=== PATIENT | male | born 1940 | race Caucasian/White ===

== ENCOUNTER 2022-07-12 09:38 | Inpatient (IN) | payer MEDICARE, SELFPAY ==
[2022-07-12] VITALS (19 sets, daily range): BP systolic 86–129; BP diastolic 51–73; PULSE 64–87; RESP 16–22; TEMP 36.6–37.8; O2SAT 90–99; BMI 36.3
--- NOTE | 2022-07-12 09:46 | PC.NURSE ---
PT ARRIVED TO FLOOR VIA STRETCHER
--- NOTE | 2022-07-12 10:06 | CA_ITS ---
APPROVED REPORT EXAM: Comprehensive 2D, Doppler, and color-flow Echocardiogram Etiologist: Josselin Bauman RVT Ht: 5 ft 10 in Wt: 253lbs BSA: 2.31 BP: 113/76 mmHg Indications: NSTEMI,SP,SOA,OBESITY 2D Dimensions LVOT 2.42 cm (M/F) 1.5-2.5 LA Volume 45.80 mL LA Volume Index 19.83 mL/m2 (M/F) 16-34 M-Mode Dimensions RVDd 4.18 cm (0.9-2.6) LA Diam 4.61 cm (1.9-4.0) LVDd 5.95 cm (3.5-5.7) Ao Diam 3.58 cm (2.0-3.7) LVDs 4.57 cm (3.5-5.7) IVSd 0.54 cm (0.6-1.1) PWd 0.89 cm (0.6-1.1) EF (Teich) 45.70% FS 23.20% EDV (Teich) 176.60 mL TAPSE 1.97 (<1.7) ESV (Teich) 95.90 mL LV Diastology E Decel Time 277.00 (160-240 msec) E/A Ratio 0.7 MED E' 4.00 (< 7 cm/sec) E'/MED E' Ratio 14.25 (>14) LAT E' 7.40 (<10 cm/sec) E/LAT E' Ratio 7.70 (>14) Aortic Valve AI PHT 1516.00 ms AO Peak GR. 11.00 mmHg Mitral Valve MV E Max Castillo. 57.00 (40-130 cm/s) MV A Velocity 87.00 (40-130 cm/s) E/A Ratio 0.66 MV Decel. Time 277.00 (160-240 ms) MV PHT 81.00 ms Pulmonary Valve PV Peak Velocity 58.00 (50-150 cm/s) Tricuspid Valve TR P. Velocity 205.00 cm/s RAP Estimate 10.00 mmHg RVSP 26.90 mmHg Left Ventricle Technically difficult study because of the patient factors and poor acoustic windows. Left atrium is mildly enlarged, left ventricular is normal size mild concentric left ventricular hypertrophy, estimated ejection fraction 45%, there is marked hypokinesis involving the inferior and inferior basal wall. Grade 1 diastolic dysfunction seen without tissue Doppler evidence of trace left atrial pressure. Right Ventricle Right atrium and right ventricular mildly enlarged with normal contractility. Aortic Valve Aortic valve is minimally thickened and fibrosed there is no aortic stenosis, there is trace aortic insufficiency. Mitral Valve Mitral valve leaflets are minimally thickened, there is mild mitral regurgitation. Tricuspid Valve Tricuspid valve grossly normal, there is mild tricuspid regurgitation, tricuspid regurgitation jet plasty is inadequate for calculation of the right ventricular systolic pressure. Pulmonic Valve Pulmonic valve is poorly visualized. Great Vessels Aortic root is normal size. Inferior vena cava is mildly dilated, respiratory variation was not recorded. Pericardium No significant pericardial effusion noted. Conclusion 1. Technically difficult study because of the patient factors and poor acoustic windows. 2. Mild biatrial enlargement, normal left ventricular size, mild concentric left ventricular hypertrophy, estimated ejection fraction 45% with segmental wall motion abnormality described above, Doppler evidence of impaired LV relaxation seen. 3. Thickened and calcified aortic valve without aortic stenosis, there is trace aortic insufficiency. 4. Mildly enlarged right ventricle with normal contractility. 5. Trace mitral and tricuspid regurgitation. 6. No significant pericardial effusion noted. 7. Inferior vena cava is mildly dilated as described above Electronically signed by : Cristopher Chanel MD 07/13/2022 05:58:21
--- NOTE | 2022-07-12 10:08 | EXP.HP ---
History of Present Illness *Admission Date: 07/12/22 *Reason for visit:: Excepted as a transfer from [facility] for chest pain/NSTEMI. *History of present illness: Mr. Santana is a pleasant 82-year-old male who presented to [facility] with 3 days of chest pressure and belching. States that he was having some discomfort into his neck and arm as well. Pain was worse with deep breathing. Did not get relief till starting treatment at the outside hospital. Denies any syncope, vomiting, radiation to his back [facility] concerning for elevated troponin of 2600 on high-sensitivity. Elevated D-dimer as well. Patient was initiated on heparin drip and [facility] was consulted for transfer. EKG obtained at outside hospital with no ST elevations. Patient reports a history of coronary artery disease with an NE in 1999 for which she received stents (cannot tell me the exact number). Procedure performed at [place]. Is also recently been referred to cardiology with Dr. Oneal in [place]. Echo performed 2 weeks ago in their office. On arrival to &, initial labs obtained showing troponin of 1.9. Patient's chest pressure is better. He is stable on room air. Additional work-up including CBC, CMP, echo, EKG still pending at this time. [facility] Disclaimer: The information contained in this section may have been updated after the patient was seen, as this information can be updated by other users. Medical History Benign prostatic hyperplasia CAD in [place] artery Cataract Diabetes mellitus, type 2 Elevated troponin Gallbladder disease History of cataract History of gastroesophageal reflux (GERD) History of heart attack History of left heart catheterization (LHC) Hyperlipidemia Hypertension Non-STEMI (non-ST elevated myocardial infarction) Osteoarthritis Surgical History History of cholecystectomy Family History Family history of cancer Social History Smoking Status: Former smoker quit date: 06/04/99 alcohol intake: never current occupational status: retired Travel in the last 8 weeks: [place] the [place] household members: children housing: house marital status: Review of Systems Review of Systems Review of systems (narrative): 14 point review of systems performed, pertinent positives and negatives as per HPI Meds Home Medications and Allergies Home Medications Medication Instructions Recorded Confirmed Type alfuzosin 10 mg tablet,extended 10 mg PO DAILY bladder problems 07/12/22 07/12/22 History release 24 hr amitriptyline 25 mg tablet 12.5 mg PO DAILY mood 07/12/22 07/12/22 History citalopram 10 mg tablet 10 mg PO DAILY mood 07/12/22 07/12/22 History famotidine 20 mg tablet 20 mg PO BID Acid reflux 07/12/22 07/12/22 History finasteride 5 mg tablet 5 mg PO DAILY bladder problems 07/12/22 07/12/22 History gabapentin 800 mg tablet 800 mg PO Q6HP PRN Pain 07/12/22 07/12/22 History metformin 500 mg tablet 500 mg PO DAILY Diabetes 07/12/22 07/12/22 History pravastatin 80 mg tablet 80 mg PO DAILY Cholesterol 07/12/22 07/12/22 History ramipril 5 mg capsule 5 mg PO DAILY High blood pressure 07/12/22 07/12/22 History spironolactone 50 mg tablet 50 mg PO DAILY Diuretic 07/12/22 07/12/22 History New Prescriptions to Start Prescriptions: Allergies Allergy/AdvReac Type Severity Reaction Status Date / Time No Known Allergies Allergy Verified 07/12/22 11:18 Exam Data for Last 24 hours Vital signs and Labs for Last 24 Hours: Temp Pulse Resp BP Pulse Ox 98.9 F 79 18 124/70 94 L 07/12/22 10:06 07/12/22 10:06 07/12/22 10:06 07/12/22 10:06 07/12/22 10:06 I & O for Last 24 hours: Intake & Output 07/09/22 07/10/22 07/11/22 07/12/22 23:
--- NOTE | 2022-07-12 10:13 | IR_ITS ---
APPROVED REPORT Patient Location: Outpatient Patient Service Representative: MIKIE Multani RT (R) PROCEDURES Left heart catheterization Left ventriculogram Selective coronary angiogram Drug-eluting stent deployment to the proximal mid LAD Drug-eluting stent deployment to the ostial proximal mid and distal dominant right coronary INDICATION Acute non-ST elevation myocardial infarction, Coronary artery disease Informed consent was obtained prior to the procedure. COMPLICATIONS None Estimated Blood Loss: Less than 10 mls TECHNIQUE One percent lidocaine used to anesthetize the right anterior aspect of the wrist. The right radial artery was accessed via the Seldinger technique. A 6 [place] sheath was placed in the right radial artery. 2.5 mg of verapamil, 800 mcg of nitroglycerin, 1mg Lidocaine and 5000 U Heparin were given through the arterial sheath. The papa catheter was also used to perform left heart catheterization, left ventriculogram and selective coronary angiogram. At the end the diagnostic angiogram therapeutic heparin was administered giving a therapeutic ACT and the guide catheter was placed in left main artery followed by a Choice PT extra-support wire down the LAD. A 3.5 x 26 mm resolute Whitefield stent was deployed in the proximal to mid LAD reducing the stenosis which was initially felt to be the culprit for the non-ST elevation myocardial infarction. MAYO-3 flow was present before and after the procedure. At the end of the procedure excellent angiographic results were obtained. Because I did not see many collaterals to the right coronary artery I was more concerned that this could be the culprit. The guide catheter was placed in the right coronary artery and the Choice PT extra-support wire easily traversed the occlusion. A 4 mm x 18 mm resolute Levon stent was deployed at 18 [place] reducing the stenosis. This immediately demonstrated the vessel was widely patent distally even though no flow was occurring. A 4 mm x 38 mm resolute Levon stent was placed distal to the first stent deployed at 18 [place]. This restored MAYO-3 flow. There was a gap between the 18 mm and 38 mm stent therefore an additional 4 mm x 8 mm resolute Whitefield stent was placed between the 2 stents together. This was deployed at 20 [place]. Following this a 4.5 x 12 mm resolute Whitefield stent was placed in the ostial segment. There appeared to be an ostial dissection. This was deployed at 20 [place]. The balloon was advanced to the midportion and deployed at 20 [place] to post dilate. An additional 4.5 x 12 mm resolute Whitefield stent was then placed distal to the ostial stent yet proximal to the first 4 mm x 18 mm stent which was placed. The stent overlapped the first stent which was placed as well as this ostial stent. This was deployed at 20 [place]. The balloon was then advanced to the mid dominant right coronary and deployed at 24 [place] to further post dilate. 800 mcg of intracoronary nitroglycerin was administered. At the end of the procedure MAYO-3 flow was present with excellent antegrade flow into the distal vessel. Initial flow down the right coronary artery was MAYO 0 with MAYO-3 flow at the end of the procedure. In the procedure the apparatus was removed the sheath was removed and hemostasis was achieved using TR banding patient was transferred to the postop putting in stable condition ANGIOGRAPHIC RESULTS The left main artery Normal The left anterior descending artery Has mild proximal 10% stenosis with a mid vessel 50% stenosis. There appears to be poststenotic dilatation suggesting a more hemodynamically significant stenosis nondominant yet still large vessel which has mild 10% proximal mid vessel and distal stenoses The circumflex artery
[2022-07-12 10:23] LABS: Basophils # 0.1 K/mm3 (0-0.2); Basophils % 0.6 % (0.1-2.0); Eosinophils # 0.1 K/mm3 (0.0-0.4); Eosinophils % 1.2 % (0.1-12.0); Hematocrit 42.5 % (42.0-52.0); Hemoglobin 13.6 g/dL (14.1-18.0); Lymphocytes # 2.7 K/mm3 (0.7-4.5); Lymphocytes % 25.4 % (10-50); Mean Corpuscular Hemoglobin 29.7 pg (27.0-31.2); Mean Corpuscular Volume 92.8 fl (80-94); Mean Platelet Volume 7.6 fl (7.4-10.4); Monocytes # 0.6 K/mm3 (0.1-1.0); Monocytes % 5.4 % (1.7-9.3); Neutrophils # 7.1 K/mm3 (1.8-7.8); Neutrophils % 67.3 % (37.0-80.0); Platelet Count 262 K/mm3 (142-424); Red Blood Count 4.59 M/mm3 (4.60-6.20); Red Cell Distribution Width 12.7 % (11.5-17.5); White Blood Count 10.6 K/mm3 (4.8-10.8)
[2022-07-12 10:30] LABS: Alanine Aminotransferase 19 U/L (12-78); Albumin/Globulin Ratio 1.3 (1.1-1.8); Alkaline Phosphatase 64 U/L (38-126); Anion Gap 8.2 mEq/L (5-15); Aspartate Amino Transferase 25 U/L (17-59); Bilirubin,Total 0.8 mg/dl (0.2-1.3); Blood Urea Nitrogen 15 mg/dl (9-20); Calcium 8.3 mg/dl (8.4-10.2); Carbon Dioxide 32 mmol/L (22.0-30.0); Chloride 102 mmol/L (98-107); Chol/HDL Ratio 4.6 (1-3.5); Cholesterol 128 mg/dl (140-200); Creatinine Clearance Estimated 71 mL/min (50-200); Estimated Glomerular Filt Rate 53 ml/min (>60); GFR (African American) 64 ML/MIN (>60); Glucose 123 mg/dl (74-100); HDL Cholesterol 28 mg/dl (40-60); Potassium 4.2 mmoL/L (3.5-5.1); Sodium 138 mmol/L (136-145); Triglycerides 113 mg/dl (30-150); VLDL Cholesterol 23 mg/dL (0-40)
[2022-07-12 10:38] LABS: Activated Partial Thrombo Time 39.5 seconds (22.8-30.6); INR 1.06 (0.9-1.1); Prothrombin Time 11.4 seconds (10.1-12.5)
[2022-07-12 10:41] LABS: Direct LDL Cholesterol 80.53 mg/dL (100-129)
--- NOTE | 2022-07-12 10:56 | P.CONPHA_ITS ---
[facility] Pharmacy Heparin Dosing Demographic Data Admission date:: 07/12/22 Date: 07/12/22 Time: 10:57 Allergies Allergy/AdvReac Type Severity Reaction Status Date / Time No Known Allergies Allergy Verified 07/12/22 11:18 Height: 1.78 m Weight: 114.901 kg Indication Medication therapy:: Heparin Current Indications:: LOW DOSE - NSTEMI Current Active Problems (Updated 07/12/22 @ 13:42 by Ricki Clemons MD) Class 2 obesity (Chronic) Elevated troponin (Acute) Non-STEMI (non-ST elevated myocardial infarction) (Acute) CAD in [place] artery (Acute) Diabetes mellitus, type 2 (Chronic) History of heart attack (Acute) Hyperlipidemia (Chronic) Hypertension (Chronic) CVA?: No Bleeding problem?: No Kidney disease?: No AK?: Yes Desired PTT range:: 50-75 seconds Labs Anticoagulation Lab Results:: 07/12/22 10:15 Hgb 13.6 L Hct 42.5 Plt Count 262 Monitoring Dose Monitor 1: Date: 07/12/22 Time: 10:15 PTT Result:: 39.5 SECONDS (BASELINE) Infusion Rate:: START HEPARIN DRIP AT 1000 UNITS/HOUR = 20 ML/HOUR AND BOLUS 4000 UNITS HEPARIN IV ONCE. Comment:: PATIENT WAS ON HEPARIN DRIP FROM [facility] AND HAD RECEIVED A 4000 UNIT HEPARIN BOLUS THERE. DRIP WAS STOPPED EN ROUTE. BASELINE PTT ABOVE, WILL BOLUS AND START DRIP AT MAXIMUM START (1000 UNITS/HOUR). PLAN FOR PTT IN 6 HOURS. Core Measures Is INR > or = 2 at discharge?: No Most Recent Labs:: Laboratory Results - last 24 hr 07/12/22 10:15: WBC 10.6, RBC 4.59 L, Hgb 13.6 L, Hct 42.5, MCV 92.8, MCH 29.7, MCHC 32.0, RDW 12.7, Plt Count 262, MPV 7.6, Neut % (Auto) 67.3, Lymph % (Auto) 25.4, [place] % (Auto) 5.4, Eos % (Auto) 1.2, Baso % (Auto) 0.6, Neut # (Auto) 7.1, Lymph # (Auto) 2.7, [place] # (Auto) 0.6, Eos # (Auto) 0.1, Baso # (Auto) 0.1 07/12/22 10:15: Sodium 138, Potassium 4.2, Chloride 102, Carbon Dioxide 32 H, Anion Gap 8.2, BUN 15, Creatinine 1.30 H, Estimated Creat Clear 71, Estimated GFR 53 L, Est GFR ( Amer) 64, Glucose 123 H, Calcium 8.3 L, Magnesium 2.0, Total Bilirubin 0.8, AST 25, ALT 19, Alkaline Phosphatase 64, Total Protein 7.0, Albumin 4.0, Globulin 3.0, Albumin/Globulin Ratio 1.3, Triglycerides 113, Cholesterol 128 L, LDL Cholesterol Direct 80.53 L, VLDL Cholesterol 23, HDL Cholesterol 28 L, Cholesterol/HDL Ratio 4.6 H 07/12/22 10:15: PT 11.4, INR 1.06, APTT 39.5 H If INR was < than 2.0 why was therapy stopped?: STARTED ON ASPIRIN AND PLAVIX Were Heparin and Warfarin started on the same day?: No If not, why?: STARTED ON ASPIRIN AND PLAVIX Comments:: STARTED ON ASPIRIN AND PLAVIX
[2022-07-12 10:57] LABS: Troponin I 1.95 ng/ml (0.00-0.034)
--- NOTE | 2022-07-12 10:58 | PC.NURSE ---
Critical Trop of 1.95 reported to Vaishnavi Church APRN and Dr. Clemons. Vaishnavi Church at bedside.
[2022-07-12 11:01] LABS: Thyroid Stimulating Hormone 1.87 uIU/mL (0.465-4.68)
--- NOTE | 2022-07-12 11:27 | HMH.PHAINT1 ---
Pharmacy Intervention Comments: Home medication reconciliation completed using external fill history
[2022-07-12 11:33] LABS: Coronavirus 19, PCR Not Detected (NotDetected); Influenza A, PCR Not Detected (NotDetected); Influenza B, PCR Not Detected (NotDetected)
--- NOTE | 2022-07-12 11:35 | EXP.CARD.CON ---
History of Present Illness History of Present Illness Consult date: 07/12/22 Requesting physician: Ricki Clemons Consult reason: chest pain Chief complaint: chest pain History of present illness: This is an 82-year-old white gentleman who was transferred here from [facility] secondary to a 3-day history of chest pain. The patient presented to their emergency department after having chest pain for 3 days. He states that this is in the substernal aspect of his chest and radiates over to the left side of his chest. He describes this as a pressure, pain sensation. He states it is worse with taking a deep breath. He states that the chest pain was more severe this morning so he went to the emergency department at [facility]. He states that it was an 8 out of 10 in intensity this morning. It is associated with shortness of breath. He denies nausea or diaphoresis. The patient states that sometimes the pain will go up his chest and into his neck as well. He states that he has had symptoms like this prior but has not had the symptoms for a very long time. The patient was found to have an elevated high-sensitivity troponin of 2600. The patient was transferred here. His troponin here is 1.95 consistent with a non-ST elevation myocardial infarction. Of note the patient reports that he had an AL in 1999 where he received stents. He states that he was later stented again in 2000. We did obtain records from [facility] which shows a cardiac catheterization in 2012. It reported that he had patent stent to his right coronary artery. No percutaneous intervention was performed on that cardiac catheterization. The patient states that he was having chest pain previously a few months ago and was sent to Dr. Oneal in [facility]. He states an echocardiogram was performed but he has no results of this. When we call they state that the echo was not performed and it was rescheduled. This morning during my examination he is still having some chest pain intermittently. He states he is short of breath with this chest pain. He denies any fever, chills, nausea, vomiting, diarrhea, PND or orthopnea. He states that he has lower extremity edema intermittently but no edema is noted on exam. [facility] Disclaimer: The information contained in this section may have been updated after the patient was seen, as this information can be updated by other users. Medical History Benign prostatic hyperplasia CAD in [place] artery Cataract Diabetes mellitus, type 2 Elevated troponin Gallbladder disease History of cataract History of gastroesophageal reflux (GERD) History of heart attack History of left heart catheterization (LHC) Hyperlipidemia Hypertension Non-STEMI (non-ST elevated myocardial infarction) Osteoarthritis Surgical History (Updated 07/12/22 @ 11:23 by Louise Bender RN) History of cholecystectomy Family History (Updated 07/12/22 @ 11:23 by Louise Bender RN) Other Family history of cancer Social History (Updated 07/12/22 @ 11:23 by Louise Bender RN) Smoking Status: Former smoker quit date: 06/04/99 alcohol intake: never current occupational status: retired Travel in the last 8 weeks: [place] household members: children housing: house marital status: Review of Systems Review of Systems Review of systems:: pertinent systems reviewed and negative unless documented below Constitutional Constitutional: Reports system reviewed and no additional complaints, except as documented Eyes Eyes: Reports system reviewed and no additional complaints, except as documented ENT Ears, Nose, Mouth, and Throat: Reports system reviewed and no additional complaints, except as documented *Cardiovascular Cardiovascular: Reports system reviewed and no additional complaints, except as documented, Reports chest pain, Reports chest pain at rest,
[2022-07-12 13:15] LABS: CATHL Activated Clotting Time > 400 SEC (74-125)
[2022-07-12 15:47] LABS: Hemoglobin A1C 6.4 % (4.0-6.0)
[2022-07-13] VITALS: PULSE 90
[2022-07-13 04:00] VITALS: BP 132/65; PULSE 80; PULSE 85; RESP 20; TEMP 37.3; O2SAT 90; BMI 37.0
--- NOTE | 2022-07-13 06:15 | ECG_ITS ---
APPROVED REPORT Exam: Resting ECG HR:78 bpm ECG Measurements Heart Rate 78 AXES OR 173 P 67 QRSd 93 QRS 122 QT 369 T -22 QTc 402 Conclusion SINUS RHYTHM INDETERMINATE AXIS LOW QRS VOLTAGE IN EXTREMITY LEADS Old inferior and anterior changes ABNORMAL ECG UNCONFIRMED REPORT Electronically signed by : Galen Dwyer MD 07/13/2022 17:31:03
--- NOTE | 2022-07-13 07:13 | EXP.PN ---
Subjective *Date: 07/13/22 *Time: 07:13 Interval history: Date of service July 13, 2022 Exam Data for Last 24 hours Vital signs and Labs for Last 24 Hours: Temp Pulse Resp BP Pulse Ox 99.2 F 85 20 132/65 90 L 07/13/22 04:00 07/13/22 04:00 07/13/22 04:00 07/13/22 04:00 07/13/22 04:00 Laboratory Results - last 24 hr 07/12/22 10:15: WBC 10.6, RBC 4.59 L, Hgb 13.6 L, Hct 42.5, MCV 92.8, MCH 29.7, MCHC 32.0, RDW 12.7, Plt Count 262, MPV 7.6, Neut % (Auto) 67.3, Lymph % (Auto) 25.4, [place] % (Auto) 5.4, Eos % (Auto) 1.2, Baso % (Auto) 0.6, Neut # (Auto) 7.1, Lymph # (Auto) 2.7, [place] # (Auto) 0.6, Eos # (Auto) 0.1, Baso # (Auto) 0.1 07/12/22 10:15: Sodium 138, Potassium 4.2, Chloride 102, Carbon Dioxide 32 H, Anion Gap 8.2, BUN 15, Creatinine 1.30 H, Estimated Creat Clear 71, Estimated GFR 53 L, Est GFR ( Amer) 64, Glucose 123 H, Calcium 8.3 L, Magnesium 2.0, Total Bilirubin 0.8, AST 25, ALT 19, Alkaline Phosphatase 64, Total Protein 7.0, Albumin 4.0, Globulin 3.0, Albumin/Globulin Ratio 1.3, Triglycerides 113, Cholesterol 128 L, LDL Cholesterol Direct 80.53 L, VLDL Cholesterol 23, HDL Cholesterol 28 L, Cholesterol/HDL Ratio 4.6 H 07/12/22 10:15: Troponin I 1.95 H, TSH 1.87 07/12/22 10:15: PT 11.4, INR 1.06, APTT 39.5 H 07/12/22 10:15: Hemoglobin A1c 6.4 H 07/12/22 10:45: SARS-CoV-2 (PCR) Not detected, Influenza A Untype (PCR) Not detected, Influenza Type B (PCR) Not detected 07/12/22 13:44: Activated Clotting Time > 400 H* I & O for Last 24 hours: Intake & Output 07/10/22 07/11/22 07/12/22 07/13/22 23:59 23:59 23:59 23:59 Intake Total 240 / 240 Output Total 1300 / 1300 Balance -1060 / -1060 Weight 114.901 kg 117.39 kg Constitutional Constitutional: no acute distress *Routine HEENT Exam Head: Present normocephalic Eye: Present EOMI and PERRL ENT: Present mucous membranes moist *Routine Neck Exam Neck: Present supple; Absent lymphadenopathy *Routine Respiratory Exam Respiratory: Present rhonchi, normal respiratory effort and symmetric chest movement *Routine Cardiovascular Exam Cardiovascular: Present RRR *Routine Abdominal Exam Abdominal: Present soft and normoactive bowel sounds; Absent tenderness *Routine Extremities Exam Extremities: Absent cyanosis, clubbing or edema *Routine Skin Exam Skin: Present warm; Absent rash *Routine Neurological Exam Neurological: Present alert, oriented X3, moving all extremities, vision grossly intact, hearing grossly intact and normal speech Routine Psychiatric Exam Psychiatric: Present normal affect, normal thought process, cooperative, good insight and good judgment Assessment and Plan *Assessment and plan (1) Non-STEMI (non-ST elevated myocardial infarction): Status: Acute Category: Medical Code(s): I21.4 - Non-ST elevation (NSTEMI) myocardial infarction (2) CAD in [place] artery: Status: Acute Category: Medical Code(s): I25.10 - Atherosclerotic heart disease of [place] coronary artery without angina pectoris (3) Diabetes mellitus, type 2: Status: Chronic Qualifiers: Diabetes mellitus terminal manager insulin use: with custodial use Diabetes mellitus complication status: without complication Qualified Code(s): E11.9 - Type 2 diabetes mellitus without complications; Z79.4 - senior living (current) use of insulin Category: Medical Code(s): E11.9 - Type 2 diabetes mellitus without complications (4) Hypertension: Status: Chronic Qualifiers: Hypertension type: primary hypertension Qualified Code(s): I10 - Essential (primary) hypertension Category: Medical Code(s): I10 - Essential (primary) hypertension Plan This is an 82-year-old male with history of coronary disease with left heart cath greater than 10 years ago who presented with several days of chest pain to [facility] emergency department and was identified with an NSTEMI with elevated tropo
[2022-07-13 07:19] VITALS: BP 132/66; PULSE 77; RESP 17; TEMP 37.1; O2SAT 94
[2022-07-13 07:35] LABS: Basophils # 0.1 K/mm3 (0-0.2); Basophils % 0.8 % (0.1-2.0); Eosinophils # 0.1 K/mm3 (0.0-0.4); Eosinophils % 0.8 % (0.1-12.0); Hemoglobin 13.1 g/dL (14.1-18.0); Lymphocytes # 2.2 K/mm3 (0.7-4.5); Mean Corpuscular HGB Conc 33.7 g/dL (31.8-35.4); Mean Corpuscular Hemoglobin 31.5 pg (27.0-31.2); Mean Corpuscular Volume 93.5 fl (80-94); Mean Platelet Volume 8.3 fl (7.4-10.4); Monocytes # 0.9 K/mm3 (0.1-1.0); Monocytes % 7.9 % (1.7-9.3); Neutrophils # 8.4 K/mm3 (1.8-7.8); Neutrophils % 71.4 % (37.0-80.0); Platelet Count 219 K/mm3 (142-424); Red Blood Count 4.17 M/mm3 (4.60-6.20); Red Cell Distribution Width 12.8 % (11.5-17.5); White Blood Count 11.7 K/mm3 (4.8-10.8)
[2022-07-13 07:48] LABS: Chloride 104 mmol/L (98-107); Potassium 4.9 mmoL/L (3.5-5.1); Sodium 138 mmol/L (136-145)
[2022-07-13 07:51] LABS: Anion Gap 7.9 mEq/L (5-15); Blood Urea Nitrogen 18 mg/dl (9-20); Carbon Dioxide 31 mmol/L (22.0-30.0); Creatinine Clearance Estimated 73 mL/min (50-200); Estimated Glomerular Filt Rate 53 ml/min (>60); GFR (African American) 64 ML/MIN (>60)
[2022-07-13 07:52] LABS: Calcium 8.1 mg/dl (8.4-10.2); Glucose 127 mg/dl (74-100)
[2022-07-13 10:57] VITALS: BP 99/52; PULSE 72; RESP 18; TEMP 37.2; O2SAT 100
--- NOTE | 2022-07-13 11:32 | EXP.DC.SUM ---
General Admission date:: 07/12/22 Discharge date: 07/13/22 HPI HPI HPI: Mr. Santana is a pleasant 82-year-old male who presented to [facility] with 3 days of chest pressure and belching. States that he was having some discomfort into his neck and arm as well. Pain was worse with deep breathing. Did not get relief till starting treatment at the outside hospital. Denies any syncope, vomiting, radiation to his back [facility] concerning for elevated troponin of 2600 on high-sensitivity. Elevated D-dimer as well. Patient was initiated on heparin drip and [facility] was consulted for transfer. EKG obtained at outside hospital with no ST elevations. Patient reports a history of coronary artery disease with an PA in 1999 for which she received stents (cannot tell me the exact number). Procedure performed at [place]. Is also recently been referred to cardiology with Dr. Oneal in [place]. Echo performed 2 weeks ago in their office. On arrival to [facility], initial labs obtained showing troponin of 1.9. Patient's chest pressure is better. He is stable on room air. Additional work-up including CBC, CMP, echo, EKG still pending at this time. Hospital Course Hospital Course Hospital Course: The patient was admitted to the medical floor with telemetry monitoring. Cardiology was consulted. He underwent a left heart catheterization on 07/12/2022 with 1 stent to the LAD and 5 stents to the RCA. Post procedurally he was maintained on dual antiplatelet therapy with high-dose statin therapy, beta-blocke and RAMY inhibitor therapy. The patient identified improvement and ambulated in his room with no difficulty. His echocardiogram identified an ejection fraction of 45% with grade 1 diastolic dysfunction. His hemoglobin A1c was 6.4% identifying good blood sugar control. He experienced no further chest pain, dyspnea or palpitations. He inquired about discharge home to follow-up with his PCP and legal editor as scheduled. He will have ongoing communication with his PCP and legal editor concerning his HFrEF and current ACC directed guideline therapy including SGLT2 inhibitor therapy. His laboratory studies and inflammatory markers were trended and identified stability. His discharge hemoglobin was 13.1 and his discharge creatinine was 1.3. I have recommended a 1 week follow-up with his PCP. I spent 35 minutes in [id number] time with the patient and nursing staff concerning the discharge process. We discussed the admitting diagnoses and hospital course. We discussed identified improvement and the patient's desire to be discharged. We reviewed inpatient studies and imaging. The patient voiced understanding on the importance of follow-up with his primary care provider and specialist(s). The patient plans to be compliant with the medication regimen prescribed and follow-up appointments. He understands that he can return to the emergency department with any sudden changes or concerns. Exam Data for Last 24 hours Vital signs and Labs for Last 24 Hours: Temp Pulse Resp BP Pulse Ox 98.9 F 72 18 99/52 L 100 07/13/22 10:57 07/13/22 10:57 07/13/22 10:57 07/13/22 10:57 07/13/22 10:57 Laboratory Results - last 24 hr 07/12/22 10:15: Hemoglobin A1c 6.4 H 07/12/22 10:45: SARS-CoV-2 (PCR) Not detected, Influenza A Untype (PCR) Not detected, Influenza Type B (PCR) Not detected 07/12/22 13:44: Activated Clotting Time > 400 H* 07/13/22 07:10: WBC 11.7 H, RBC 4.17 L, Hgb 13.1 L, Hct 39.0 L, MCV 93.5, MCH 31.5 H, MCHC 33.7, RDW 12.8, Plt Count 219, MPV 8.3, Neut % (Auto) 71.4, Lymph % (Auto) 19.0, [place] % (Auto) 7.9, Eos % (Auto) 0.8, Baso % (Auto) 0.8, Neut # (Auto) 8.4 H, Lymph # (Auto) 2.2, [place] # (Auto) 0.9, Eos # (Auto) 0.1, Baso # (Auto) 0.1 07/13/22 07:10: Sodium 138, Potassium 4.9, Chloride 104, Carbon Dioxide 31 H, Anion Gap 7.9, BUN 18, Creatinine 1.30 H, Estimated Creat Clear 73, Estimated GFR 53 L, Est GFR (Afr
--- NOTE | 2022-07-13 11:46 | HMH.PHACL ---
PHA Electrical And Instrumentation Manager Discharge Med Print Operator: Ricki Santana has received discharge medication counseling on the following medications: LIPITOR,METOPROLOL,ASPIRIN, RAMIPRIL, PLAVIX
--- NOTE | 2022-07-13 12:15 | EXP.CARD.PN ---
Subjective Subjective Date: 07/13/22 Time: 10:00 Principal diagnosis: non-stemi Interval history: This is an 82-year-old white gentleman who presented to the emergency department from [facility] secondary to a non-STEMI. The patient underwent left cardiac catheterization yesterday and had stenting to the LAD with 1 stent and stenting to the right coronary artery with 5 stents. He will be on aspirin and Plavix for dual antiplatelet therapy. This morning he denies any chest pain or pressure. He denies any shortness of breath or edema. He denies any fever, chills, nausea, vomiting, diarrhea, PND orthopnea. He states that he feels so much better today. Exam Data for Last 24 hours Vital signs and Labs for Last 24 Hours: Temp Pulse Resp BP Pulse Ox 98.9 F 72 18 99/52 L 100 07/13/22 10:57 07/13/22 10:57 07/13/22 10:57 07/13/22 10:57 07/13/22 10:57 Laboratory Results - last 24 hr 07/12/22 10:15: Hemoglobin A1c 6.4 H 07/12/22 13:44: Activated Clotting Time > 400 H* 07/13/22 07:10: WBC 11.7 H, RBC 4.17 L, Hgb 13.1 L, Hct 39.0 L, MCV 93.5, MCH 31.5 H, MCHC 33.7, RDW 12.8, Plt Count 219, MPV 8.3, Neut % (Auto) 71.4, Lymph % (Auto) 19.0, [place] % (Auto) 7.9, Eos % (Auto) 0.8, Baso % (Auto) 0.8, Neut # (Auto) 8.4 H, Lymph # (Auto) 2.2, [place] # (Auto) 0.9, Eos # (Auto) 0.1, Baso # (Auto) 0.1 07/13/22 07:10: Sodium 138, Potassium 4.9, Chloride 104, Carbon Dioxide 31 H, Anion Gap 7.9, BUN 18, Creatinine 1.30 H, Estimated Creat Clear 73, Estimated GFR 53 L, Est GFR ( Amer) 64, Glucose 127 H, Calcium 8.1 L I & O for Last 24 hours: Intake & Output 02/0607/11/22 07/12/22 07/13/22 23:59 23:59 23:59 23:59 Intake Total 240 / 240 360 / 360 Output Total 1300 / 1300 Balance -1060 / -1060 360 / 360 Weight 253 lb 5.013 oz 258 lb 12.8 oz Constitutional Constitutional: no acute distress and obese *Routine HEENT Exam Head: Present normocephalic and atraumatic ENT: Present mucous membranes moist *Routine Neck Exam Neck: Present supple, full ROM and normal carotid upstroke; Absent JVD, carotid bruit or lymphadenopathy *Routine Respiratory Exam Respiratory: Present CTA bilaterally, normal respiratory effort, able to speak in complete sentences and symmetric chest movement *Routine Cardiovascular Exam Cardiovascular: Present RRR, Normal S1 and Normal S2; Absent murmur or gallop *Routine Abdominal Exam Abdominal: Present soft and normoactive bowel sounds; Absent tenderness, distended or organomegaly *Routine Extremities Exam Extremities: Present full ROM, pulses intact and normal capillary refill; Absent cyanosis, clubbing or edema *Routine Skin Exam Skin: Present intact and warm; Absent erythema *Routine Neurological Exam Neurological: Present alert, oriented X3 and CN II-XII intact; Absent sensory deficit or motor deficit Routine Psychiatric Exam Psychiatric: Present normal affect Progress Note: A&P Assessment and plan (1) Non-STEMI (non-ST elevated myocardial infarction): Status: Acute (2) CAD in [place] artery: Status: Acute (3) Diabetes mellitus, type 2: Status: Chronic (4) Hypertension: Status: Chronic (5) Hyperlipidemia: Status: Chronic (6) History of heart attack: Status: Acute (7) Elevated troponin: Status: Acute (8) Class 2 obesity: Status: Chronic (9) Ischemic cardiomyopathy: Status: Acute Assessment and Plan Assessment and Plan for All Diagnoses:: Plan: 1. This is an 82-year-old gentleman who was transferred here from [facility]. The patient is status post STEMI. He did undergo a left cardiac catheterization with 1 stent placed to the LAD and 5 stents placed to the right coronary artery. The patient tolerated the procedure well and will be on Plavix and aspirin for dual antiplatelet therapy. 2. Coronary artery disease is likely stable. 3. His blood pressure is well controlled. 4. His LDL goal is less than 55. His
--- NOTE | 2022-07-14 13:59 | CARE MANAGER ---
Contacted patient related to hospital discharge. States that he is doing well and picked up his new medications. He did also stop the Pravastatin as instructed. He made his PCP appt and is aware of his cardiology appt. Denies any questions or concerns. Thanks, Jessie
== END 2022-07-13 11:58 | disposition home or self-care (01) | DRG 246 ==
PROVIDERS: Internal Medicine; Admitting Provider Internal Medicine Adolescent Medicine; PCP Emergency Medicine; Visit Provider Internal Medicine Adolescent Medicine
PROC: 027137Z Dilation of Coronary Artery, Two Arteries with Four or More Drug-eluting Intraluminal Devices, Percutaneous Approach (ICD-10-PCS; principal; 2022-07-12 11:15)
DX: I21.4 Non-ST elevation (NSTEMI) myocardial infarction (principal); I25.42 Coronary artery dissection; E11.9 Type 2 diabetes mellitus without complications; I25.10 Atherosclerotic heart disease of native coronary artery without angina pectoris; N40.0 Benign prostatic hyperplasia without lower urinary tract symptoms; I25.2 Old myocardial infarction; E78.5 Hyperlipidemia, unspecified; I10 Essential (primary) hypertension; M19.90 Unspecified osteoarthritis, unspecified site; E78.2 Mixed hyperlipidemia; E66.9 Obesity, unspecified; Z68.37 Body mass index [BMI] 37.0-37.9, adult; Z79.84 Long term (current) use of oral hypoglycemic drugs; E11.40 Type 2 diabetes mellitus with diabetic neuropathy, unspecified; F39 Unspecified mood [affective] disorder; I25.82 Chronic total occlusion of coronary artery
CPT/HCPCS: G0379; 36415; 80048; 80053; 80061; 83036; 83735; 84443; 84484; 85025; 85347; 85610; 85730; 92928; 92941; 93005; 93306; 93458; 99152; 99153; C1725; C1760; C1769; C1876; C9600; C9606; C9803; J1644; Q9967; U0003; U0005

== ENCOUNTER → 2022-07-20 09:24 | Outpatient (CLI) | payer MEDICARE, SELFPAY ==
[2022-07-20 09:58] LABS: Hematocrit 45.2 % (42.0-52.0); Hemoglobin 14.7 g/dL (14.1-18.0)
[2022-07-20 10:07] LABS: Blood Urea Nitrogen 16 mg/dl (9-20); Estimated Glomerular Filt Rate 53 ml/min (>60); GFR (African American) 64 ML/MIN (>60)
== END ==
PROVIDERS: PCP Emergency Medicine; Visit Provider Internal Medicine
DX: I25.10 Atherosclerotic heart disease of native coronary artery without angina pectoris (principal); Y84.0 Cardiac catheterization as the cause of abnormal reaction of the patient, or of later complication, without mention of misadventure at the time of the procedure
CPT/HCPCS: 36415; 82565; 84520; 85014; 85018

== ENCOUNTER 2022-08-02 09:50 | Outpatient (RCR) | payer MEDICARE, SELFPAY | END 2022-09-13 13:00 | disposition home or self-care (01) | LOC: PT 09:50 | PROVIDERS: Visit Provider Internal Medicine | DX: I25.10 Atherosclerotic heart disease of native coronary artery without angina pectoris (principal); Z95.5 Presence of coronary angioplasty implant and graft | CPT/HCPCS: 93798 ==

== ENCOUNTER → 2022-09-19 12:49 | Outpatient (CLI) | payer MEDICARE, SELFPAY | PROVIDERS: PCP Emergency Medicine; Visit Provider Nurse Practitioner Family | DX: I25.10 Atherosclerotic heart disease of native coronary artery without angina pectoris (principal); I25.5 Ischemic cardiomyopathy; E11.9 Type 2 diabetes mellitus without complications; E78.2 Mixed hyperlipidemia; I10 Essential (primary) hypertension; Z79.4 Long term (current) use of insulin | CPT/HCPCS: 93308 ==

== ENCOUNTER → 2022-10-31 11:27 | Outpatient (CLI) | payer MEDICARE, SELFPAY ==
[2022-10-31 12:56] LABS: Anion Gap 12.8 mEq/L (5-15); Blood Urea Nitrogen 19 mg/dl (9-20); Calcium 8.4 mg/dl (8.4-10.2); Carbon Dioxide 30 mmol/L (22.0-30.0); Chloride 102 mmol/L (98-107); Estimated Glomerular Filt Rate 64 ml/min (>60); GFR (African American) 78 ML/MIN (>60); Glucose 115 mg/dl (74-100); Potassium 4.8 mmoL/L (3.5-5.1); Sodium 140 mmol/L (136-145)
== END ==
PROVIDERS: PCP Emergency Medicine; Visit Provider Nurse Practitioner Family
DX: E78.2 Mixed hyperlipidemia (principal); I25.118 Atherosclerotic heart disease of native coronary artery with other forms of angina pectoris; I25.5 Ischemic cardiomyopathy; I50.20 Unspecified systolic (congestive) heart failure; R07.89 Other chest pain; R60.9 Edema, unspecified; I11.0 Hypertensive heart disease with heart failure
CPT/HCPCS: 80048

== ENCOUNTER → 2022-11-07 10:43 | Outpatient (CLI) | payer MEDICARE, SELFPAY ==
[2022-11-07 12:22] LABS: Anion Gap 13.8 mEq/L (5-15); Blood Urea Nitrogen 17 mg/dl (9-20); Calcium 8.8 mg/dl (8.4-10.2); Carbon Dioxide 32 mmol/L (22.0-30.0); Chloride 98 mmol/L (98-107); Estimated Glomerular Filt Rate 58 ml/min (>60); GFR (African American) 70 ML/MIN (>60); Glucose 120 mg/dl (74-100); Potassium 4.8 mmoL/L (3.5-5.1); Sodium 139 mmol/L (136-145)
== END ==
PROVIDERS: PCP Emergency Medicine; Visit Provider Nurse Practitioner Family
DX: I25.10 Atherosclerotic heart disease of native coronary artery without angina pectoris (principal)
CPT/HCPCS: 36415; 80048

== ENCOUNTER 2023-05-15 21:31 | Emergency (ER) | payer MEDICARE, SELFPAY ==
[2023-05-15 21:33] VITALS: BP 125/66; PULSE 66; RESP 19; TEMP 36.9; O2SAT 96; BMI 35.9
--- NOTE | 2023-05-15 21:41 | ECG_ITS ---
APPROVED REPORT Exam: Resting ECG HR:69 bpm ECG Measurements Heart Rate 69 AXES AL 178 P 70 QRSd 94 QRS -23 QT 384 T -9 QTc 404 Conclusion SINUS RHYTHM WITH OCCASIONAL VENTRICULAR PREMATURE COMPLEXES LOW QRS VOLTAGE IN PRECORDIAL LEADS [QRS DEFLECTION < 1.0 mV IN CHEST LEADS] INFERIOR MYOCARDIAL INFARCTION , OF INDETERMINATE AGE [40+ ms Q WAVE AND/OR ST/T ABNORMALITY IN II/aVF] ABNORMAL ECG UNCONFIRMED REPORT Electronically signed by : Galen Dwyer MD 05/16/2023 08:56:23
[2023-05-15 21:59] LABS: POC Glucose,Bedside 143 (70-110)
[2023-05-15 22:00] VITALS: BP 130/64; PULSE 65; RESP 16; O2SAT 96
--- NOTE | 2023-05-15 22:30 | CT_ITS ---
PROCEDURE INFORMATION: Exam: CTA Neck With Contrast Exam date and time: 05/15/2023 11:06 PM Age: 82 years old Clinical indication: Vertigo; Additional info: Spontaneous vertigo TECHNIQUE: Imaging protocol: Computed tomographic angiography of the neck with contrast. Exam focused on the cervical segments of the vasculature. 3D rendering (Not supervised by radiologist): MIP and/or 3D reconstructed images were created by the technologist. Radiation optimization: All CT scans at this facility use at least one of these dose optimization techniques: automated exposure control; mA and/or kV adjustment per patient size (includes targeted exams where dose is matched to clinical indication); or iterative reconstruction. Contrast material: ISOVUE; Contrast volume: 100 ml; Contrast route: INTRAVENOUS (IV); REPORTING DATA: Count of CT and Cardiac NM exams in prior 12 months: This patient has received 0 known CTs and 0 known cardiac nuclear medicine studies in the 12 months prior to the current study. COMPARISON: 1. CT ANGIO HEAD 05/15/2023 11:[address] HEAD/BRAIN WO CON 05/15/2023 11:06 PM FINDINGS: Right common carotid artery: No stenosis. No dissection or occlusion. Right internal carotid artery: No stenosis of the extracranial segment. No dissection or occlusion. Right external carotid artery: No occlusion or stenosis of the origin. Left common carotid artery: No stenosis. No dissection or occlusion. Left internal carotid artery: No stenosis of the extracranial segment. No dissection or occlusion. Left external carotid artery: No occlusion or stenosis of the origin. Right vertebral artery: No stenosis. No dissection or occlusion. Left vertebral artery: There is a diminutive left vertebral artery. Soft tissues: Normal. No significant soft tissue swelling. Bones/joints: No acute fracture. IMPRESSION: No stenosis or occlusion. REFERENCES: NASCET CRITERIA. The degree of stenosis in the cervical segment of the internal carotid artery is based on NASCET criteria. Normal is no stenosis. Mild is less than 50% stenosis. Moderate is 50-69% stenosis. Severe is 70% to 99% stenosis. Total occlusion is no detectable patent lumen.
--- NOTE | 2023-05-15 22:30 | CT_ITS ---
PROCEDURE INFORMATION: Exam: CT Head Without Contrast Exam date and time: 05/15/2023 11:06 PM Age: 82 years old Clinical indication: Other: Vertigo; Additional info: Spontaneous vertigo TECHNIQUE: Imaging protocol: Computed tomography of the head without contrast. Radiation optimization: All CT scans at this facility use at least one of these dose optimization techniques: automated exposure control; mA and/or kV adjustment per patient size (includes targeted exams where dose is matched to clinical indication); or iterative reconstruction. REPORTING DATA: Count of CT and Cardiac NM exams in prior 12 months: This patient has received 0 known CTs and 0 known cardiac nuclear medicine studies in the 12 months prior to the current study. COMPARISON: 1. CT ANGIO HEAD 05/15/2023 11:[address] ANGIO NECK 05/15/2023 11:06 PM FINDINGS: Brain: Normal. No hemorrhage. Unremarkable white matter. No mass effect. Cerebral ventricles: No ventriculomegaly. Paranasal sinuses: Visualized sinuses are unremarkable. No fluid levels. Mastoid air cells: Visualized mastoid air cells are well aerated. Bones/joints: Unremarkable. No acute fracture. Soft tissues: Unremarkable. IMPRESSION: No acute intracranial abnormality.
--- NOTE | 2023-05-15 22:30 | CT_ITS ---
PROCEDURE INFORMATION: Exam: CTA Head With Contrast, Arteriography Exam date and time: 05/15/2023 11:06 PM Age: 82 years old Clinical indication: Vertigo; Additional info: Spontaneous vertigo TECHNIQUE: Imaging protocol: Computed tomographic angiography of the head with contrast. Exam focused on the arteries. 3D rendering (Not supervised by radiologist): MIP and/or 3D reconstructed images were created by the technologist. Radiation optimization: All CT scans at this facility use at least one of these dose optimization techniques: automated exposure control; mA and/or kV adjustment per patient size (includes targeted exams where dose is matched to clinical indication); or iterative reconstruction. Contrast material: ISOVUE; Contrast volume: 100 ml; Contrast route: INTRAVENOUS (IV); REPORTING DATA: Count of CT and Cardiac NM exams in prior 12 months: This patient has received 0 known CTs and 0 known cardiac nuclear medicine studies in the 12 months prior to the current study. COMPARISON: 1. CT HEAD/BRAIN WO CON 05/15/2023 11:[address] ANGIO NECK 05/15/2023 11:06 PM FINDINGS: ANTERIOR CIRCULATION: Right internal carotid artery: Intracranial segment is patent with no significant stenosis. No aneurysm. Right middle cerebral artery: No occlusion or significant stenosis. No aneurysm. Right anterior cerebral artery: No occlusion or significant stenosis. No aneurysm. Left internal carotid artery: Intracranial segment is patent with no significant stenosis. No aneurysm. Left middle cerebral artery: No occlusion or significant stenosis. No aneurysm. Left anterior cerebral artery: No occlusion or significant stenosis. No aneurysm. POSTERIOR CIRCULATION: Right vertebral artery: No occlusion or significant stenosis. No aneurysm. Left vertebral artery: There is a diminutive left vertebral artery with a right dominant vertebrobasilar system. Basilar artery: See Left vertebral artery finding. Right posterior cerebral artery: No occlusion or significant stenosis. No aneurysm. Left posterior cerebral artery: No occlusion or significant stenosis. No aneurysm. Brain: No definite mass, mass effect, or midline shift. Cerebral ventricles: No ventriculomegaly. Bones/joints: Unremarkable. No acute fracture. Soft tissues: Unremarkable. IMPRESSION: No evidence for large vessel occlusion or other acute vascular anomaly.
[2023-05-15 22:31] VITALS: BP 123/80; PULSE 64; RESP 16; O2SAT 95
--- NOTE | 2023-05-15 22:32 | HMH.EDGENADL ---
Discharge Plan Disposition Patient Disposition: Home, Self-Care Prescriptions Prescriptions: No Action Entresto 24-26 mg tablet 1 tab PO BID Qty: 60 2RF aspirin 81 mg tablet,delayed release (DR/EC) 81 mg PO DAILY Qty: 90 3RF spironolactone 50 mg tablet 50 mg PO DAILY Qty: 90 3RF atorvastatin 80 mg tablet 80 mg PO HS Qty: 90 3RF clopidogrel 75 mg tablet 75 mg PO DAILY Qty: 90 3RF metoprolol succinate 25 mg tablet extended release 24 hr 25 mg PO DAILY Qty: 90 3RF furosemide [Lasix] 20 mg tablet 20 mg PO DAILY Qty: 90 3RF metformin 500 mg tablet 500 mg PO DAILY citalopram 10 mg tablet 10 mg PO DAILY Patient Comments: TAKE ONE TABLET BY MOUTH DAILY famotidine 20 mg tablet 20 mg PO BID Patient Comments: take 1 tablet by mouth 2 times per day for stomach/ reflux amitriptyline 25 mg tablet 12.5 mg PO HS Patient Comments: take 1/2 tablet orally daily at bedtime gabapentin 800 mg tablet 800 mg PO Q6HP PRN (Reason: Pain) finasteride 5 mg tablet 5 mg PO DAILY alfuzosin 10 mg tablet extended release 24 hr 10 mg PO DAILY Referrals Follow up/Referrals: Provider,Referral, [Primary Care Provider] - See instructions Activity Restrictions/Add. Instructions Additional Instructions/Restrictions: Please follow-up with Dr. Asher. Please follow-up with your primary care provider. Please return to the emergency department if you develop any new or worsening symptoms or become concerned for your health. Clinical Impressions Clinical Impression: Dizziness Instructions Patient Instructions: DI for Syncope in Adults (Fainting), DI for Syncope in Children (Fainting) Discharge ED Provider: Wilber Leyva General Adult HPI <Wilber Leyva MD - Last Filed: 05/15/23 23:42> General Chief complaint: Syncope Stated complaint: dizzy, unable to walk Time Seen by Provider: 05/15/23 21:43 Mode of Arrival: Wheelchair Source of Information: Patient and Relative Limitations: No Limitations Description of Symptoms (Recalled from ER Triage Doc. by RN): Patient states that when he stood up to go to the restroom he got dizzy and almost passed out ,falling back into his chair. Patient and son states that when the patient tried to get up again the same thing happened. History of Present Illness HPI narrative: Patient is a 82-year-old male with past medical history of ACS status post stenting who presents to the emergency department for evaluation of dizziness. History is obtained by patient at bedside. Patient was sitting on a chair when he had spontaneous dizziness, the room does not spin in a particular direction. Upon ambulation his symptoms worsened. Total duration of symptoms 1 to 2 minutes. Patient has slight posterior head discomfort however does not have any ongoing significant vertiginous symptoms. No vomiting. No trauma. No anticoagulation. No other acute complaints at this time. Related Data Home Medications Medication Instructions Recorded Confirmed alfuzosin 10 mg tablet,extended 10 mg PO DAILY bladder problems 07/12/22 11/14/22 release 24 hr amitriptyline 25 mg tablet 12.5 mg PO HS mood/sleep 07/12/22 11/14/22 citalopram 10 mg tablet 10 mg PO DAILY mood 07/12/22 11/14/22 famotidine 20 mg tablet 20 mg PO BID Acid reflux 07/12/22 11/14/22 finasteride 5 mg tablet 5 mg PO DAILY bladder problems 07/12/22 11/14/22 gabapentin 800 mg tablet 800 mg PO Q6HP PRN Pain 07/12/22 11/14/22 metformin 500 mg tablet 500 mg PO DAILY Diabetes 07/12/22 11/14/22 Previous Rx's Medication Instructions Recorded aspirin 81 mg tablet,delayed 81 mg PO DAILY #90 tabs 07/20/22 release atorvastatin 80 mg tablet 80 mg PO HS #90 tabs 07/20/22 clopidogrel 75 mg tablet 75 mg PO DAILY #90 tabs 07/20/22 metoprolol succinate 25 mg 25 mg PO DAILY #90 tabs 07/20/22 tablet,extended release 24 hr spironolactone 50 mg tablet 50 mg PO DAILY Diure
--- NOTE | 2023-05-15 22:34 | XR_ITS ---
PROCEDURE INFORMATION: Exam: XR Chest Exam date and time: 05/15/2023 11:07 PM Age: 82 years old Clinical indication: Other: Presyncope TECHNIQUE: Imaging protocol: Radiologic exam of the chest. Views: 1 view. COMPARISON: DX ABD SERIES W CHEST 07/12/2022 6:02 AM FINDINGS: Lungs: No evidence of acute pulmonary disease or infiltrates; lung francois appear clear. Pleural spaces: No evidence of pleural effusion, pneumothorax, or pleural thickening in the visualized pleural spaces. Heart/Mediastinum: No evidence of mediastinal widening or cardiac silhouette enlargement; the mediastinum and heart appear within normal limits for contour and size. Bones/joints: No evidence of acute osseous abnormalities within the visualized portions of the thoracic spine and ribs. Osseous structures appear appropriate for patient age. IMPRESSION: Negative study. No acute cardiopulmonary abnormalities identified.
[2023-05-15 22:41] LABS: Basophils % 0.4 % (0.1-2.0); Chloride 102 mmol/L (98-107); Eosinophils # 0.2 K/mm3 (0.0-0.4); Eosinophils % 1.8 % (0.1-12.0); Hematocrit 46.9 % (42.0-52.0); Lymphocytes # 2.5 K/mm3 (0.7-4.5); Lymphocytes % 28.9 % (10-50); Mean Corpuscular HGB Conc 34.2 g/dL (31.8-35.4); Mean Corpuscular Hemoglobin 30.6 pg (27.0-31.2); Mean Corpuscular Volume 89.3 fl (80-94); Mean Platelet Volume 8.1 fl (7.4-10.4); Monocytes # 0.5 K/mm3 (0.1-1.0); Monocytes % 5.4 % (1.7-9.3); Neutrophils # 5.5 K/mm3 (1.8-7.8); Neutrophils % 63.6 % (37.0-80.0); Platelet Count 195 K/mm3 (142-424); Red Blood Count 5.25 M/mm3 (4.60-6.20); Red Cell Distribution Width 13.4 % (11.5-17.5); White Blood Count 8.7 K/mm3 (4.8-10.8)
[2023-05-15 22:42] LABS: Potassium 4.1 mmoL/L (3.5-5.1); Sodium 137 mmol/L (136-145)
[2023-05-15 22:44] LABS: Alanine Aminotransferase 24 U/L (12-78); Alkaline Phosphatase 80 U/L (38-126); Aspartate Amino Transferase 36 U/L (17-59); Bilirubin,Total 0.6 mg/dl (0.2-1.3); Blood Urea Nitrogen 19 mg/dl (9-20); Creatinine Clearance Estimated 70 mL/min (50-200); Estimated Glomerular Filt Rate 53 ml/min (>60); GFR (African American) 64 ML/MIN (>60)
[2023-05-15 22:45] LABS: Albumin Level 4.2 g/dl (3.5-5.0); Albumin/Globulin Ratio 1.3 (1.1-1.8); Anion Gap 7.1 mEq/L (5-15); Calcium 8.4 mg/dl (8.4-10.2); Carbon Dioxide 32 mmol/L (22.0-30.0); Globulin 3.2 g/dL (1.3-3.2); Glucose 139 mg/dl (74-100); Total Protein,Serum 7.4 g/dl (6.3-8.2)
[2023-05-15 22:51] LABS: Magnesium 1.9 mg/dl (1.6-2.3)
[2023-05-15 23:00] VITALS: BP 124/70; PULSE 64; RESP 15; O2SAT 94
[2023-05-15 23:30] VITALS: BP 117/56; PULSE 69; RESP 12; O2SAT 94
[2023-05-16] VITALS: BP 115/60; PULSE 61; RESP 15; O2SAT 93
[2023-05-16 00:23] VITALS: BP 118/61; PULSE 65; RESP 19; TEMP 37; O2SAT 96
== END 2023-05-16 00:26 | disposition home or self-care (01) ==
PROVIDERS: Emergency Provider Emergency Medicine
DX: R42 Dizziness and giddiness (principal); I25.119 Atherosclerotic heart disease of native coronary artery with unspecified angina pectoris; E11.9 Type 2 diabetes mellitus without complications; E78.5 Hyperlipidemia, unspecified; I10 Essential (primary) hypertension; I25.5 Ischemic cardiomyopathy; Z87.891 Personal history of nicotine dependence; I49.3 Ventricular premature depolarization
CPT/HCPCS: 70450; 70496; 70498; 71045; 80053; 82962; 83735; 85025; 93005; 99285; Q9967

== ENCOUNTER → 2023-05-16 15:37 | Outpatient (CLI) | payer MEDICARE, SELFPAY | LOC: RT 15:38 | PROVIDERS: PCP Emergency Medicine; Visit Provider Nurse Practitioner Family | DX: R00.1 Bradycardia, unspecified (principal) | CPT/HCPCS: 93225 ==

== ENCOUNTER → 2023-05-18 15:51 | Outpatient (CLI) | payer MEDICARE, SELFPAY | LOC: RT 15:51 | PROVIDERS: PCP Emergency Medicine; Visit Provider Nurse Practitioner Family | DX: I11.0 Hypertensive heart disease with heart failure (principal); I25.119 Atherosclerotic heart disease of native coronary artery with unspecified angina pectoris; I25.5 Ischemic cardiomyopathy; I50.20 Unspecified systolic (congestive) heart failure; R42 Dizziness and giddiness; R55 Syncope and collapse; R60.9 Edema, unspecified; E11.9 Type 2 diabetes mellitus without complications; E78.5 Hyperlipidemia, unspecified; Z79.84 Long term (current) use of oral hypoglycemic drugs; Z87.891 Personal history of nicotine dependence | CPT/HCPCS: 93270 ==

== ENCOUNTER → 2023-05-24 12:48 | Outpatient (CLI) | payer MEDICARE, SELFPAY ==
--- NOTE | 2023-05-24 12:51 | CA_ITS ---
APPROVED REPORT EXAM: Comprehensive 2D, Doppler, and color-flow Echocardiogram Clerical Aide: Josselin Bauman RVT Ht: 5 ft 10 in Wt: 248lbs BSA: 2.29 BP: 142/71 mmHg Indications: CP,CAD,HTN,HLD,SYNCOPE,CM,DM,EX SMOKER TDS-PT BODY HABITUS 2D Dimensions LA Volume 68.50 mL LA Volume Index 29.91 mL/m2 (M/F) 16-34 M-Mode Dimensions RVDd 2.77 cm (0.9-2.6) LA Diam 4.78 cm (1.9-4.0) LVDd 5.36 cm (3.5-5.7) LVDs 3.85 cm (3.5-5.7) IVSd 1.17 cm (0.6-1.1) PWd 0.80 cm (0.6-1.1) EF (Teich) 54.00% EPSs 2.68 cm FS 28.20% EDV (Teich) 138.90 mL TAPSE 2.82 (<1.7) ESV (Teich) 63.90 mL LV Diastology E Decel Time 173 (160-240 msec) E/A Ratio 0.9 MED A' 9.90 cm/s LAT A' 8.20 cm/s Aortic Valve ALONZO Index 1.45 cm2/m2 AoV Peak Castillo. 135.0 (50-130 cm/s) AI PHT 570.00 ms AO Peak GR. 7.30 mmHg AO Mean GR. 4.10 (<5 mmHg) AO VTI 32.5 (18-25 cm) ALONZO (VTI) 3.39 (2.5-4.5 cm2) Mitral Valve MV E Max Castillo. 79.0 (40-130 cm/s) MV A Velocity 90.0 (40-130 cm/s) E/A Ratio 0.88 MV PHT 51.0 ms Pulmonary Valve PV Peak Velocity 71.0 (50-150 cm/s) Tricuspid Valve TR P. Velocity 197.00 cm/s RAP Estimate 10.00 mmHg RVSP 25.50 mmHg Left Ventricle The left ventricle is normal size. The left ventricular systolic function is mildly reduced There is normal left ventricular wall thickness. There is mild global hypokinesis present. There is moderate hypokinesis of the basal inferolateral LV wall. There is severe hypokinesis of the inferior and inferoseptal LV uribe. The left ventricular diastolic function is normal. LVEF is 40-45%. Right Ventricle The right ventricle is normal size. Right ventricle is mildly hypokinetic. Atria Left atrium is mildly dilated. Right atrium is mildly dilated. There is no Doppler evidence of interatrial shunt. Aortic Valve The aortic valve is mildly thickened. There is no aortic valvular stenosis. Mild aortic regurgitation. Mitral Valve The mitral valve is mildly thickened. No evidence of mitral valve stenosis. Trace mitral regurgitation. Tricuspid Valve The tricuspid valve leaflets are thin and pliable. Trace tricuspid regurgitation. There is insufficient TR jet to estimate RVSP. Pulmonic Valve The pulmonary valve is normal in structure. Mild pulmonic regurgitation. Great Vessels The aortic root is normal in size. The ascending aorta is normal in size. IVC is normal in size and collapses >50% with inspiration. Pericardium There is no pericardial effusion. Other Information Study Quality: Technically Difficult Conclusion Technically difficult study due to poor acoustic windows. Mild reduction in LV systolic function (LVEF 40-45%). Moderate hypokinesis of the basal inferolateral LV wall. Severe hypokinesis of the inferior and inferoseptal LV uribe. Mild AI. Compared to prior study from 09/19/2022, the LVEF is overall unchanged. Electronically signed by : Iris Jacob MD 05/28/2023 23:58:13
== END ==
LOC: RT 12:51
PROVIDERS: PCP Emergency Medicine; Visit Provider Nurse Practitioner Family
DX: I11.0 Hypertensive heart disease with heart failure (principal); I25.119 Atherosclerotic heart disease of native coronary artery with unspecified angina pectoris; I25.5 Ischemic cardiomyopathy; I50.20 Unspecified systolic (congestive) heart failure; R42 Dizziness and giddiness; R55 Syncope and collapse; R60.9 Edema, unspecified; E78.5 Hyperlipidemia, unspecified; E11.9 Type 2 diabetes mellitus without complications; Z79.84 Long term (current) use of oral hypoglycemic drugs; Z87.891 Personal history of nicotine dependence
CPT/HCPCS: 93306

== ENCOUNTER 2023-07-15 03:08 | Emergency (ER) | payer MEDICARE, SELFPAY ==
--- NOTE | 2023-07-15 03:08 | XR_ITS ---
PROCEDURE INFORMATION: Exam: XR Chest Exam date and time: 07/15/2023 3:11 AM Age: 83 years old Clinical indication: Pain; Chest pressure; Additional info: Cp TECHNIQUE: Imaging protocol: Radiologic exam of the chest. Views: 1 view. COMPARISON: CR XR CHEST PORTABLE 05/15/2023 11:07 PM FINDINGS: Lungs: Unremarkable. No consolidation. Pleural spaces: Unremarkable. No pleural effusion. No pneumothorax. Heart/Mediastinum: Unremarkable. No cardiomegaly. Bones/joints: Unremarkable. IMPRESSION: No acute findings.
[2023-07-15 03:12] VITALS: BP 124/64; PULSE 65; RESP 15; TEMP 36.5; O2SAT 98; BMI 34.4
[2023-07-15] MEDS: LIDOCAINE 2% VISCOUS SOL 15ML UDC 15 ML PO (03:16)
[2023-07-15] MEDS: ASPIRIN 325MG TABLET 325 MG PO (03:16)
[2023-07-15 03:18] LABS: Basophils # 0.1 K/mm3 (0-0.2); Basophils % 0.6 % (0.1-2.0); Eosinophils # 0.2 K/mm3 (0.0-0.4); Eosinophils % 1.8 % (0.1-12.0); Hematocrit 48.5 % (42.0-52.0); Hemoglobin 16.1 g/dL (14.1-18.0); Mean Corpuscular HGB Conc 33.2 g/dL (31.8-35.4); Mean Corpuscular Hemoglobin 31.3 pg (27.0-31.2); Mean Corpuscular Volume 94.3 fl (80-94); Monocytes # 0.5 K/mm3 (0.1-1.0); Monocytes % 5.5 % (1.7-9.3); Neutrophils # 5.2 K/mm3 (1.8-7.8); Neutrophils % 58.1 % (37.0-80.0); Platelet Count 220 K/mm3 (142-424); Red Blood Count 5.14 M/mm3 (4.60-6.20); Red Cell Distribution Width 13.3 % (11.5-17.5); White Blood Count 8.9 K/mm3 (4.8-10.8)
[2023-07-15 03:19] VITALS: PULSE 56
[2023-07-15 03:22] LABS: Chloride 103 mmol/L (98-107); Potassium 4.2 mmoL/L (3.5-5.1); Sodium 139 mmol/L (136-145)
[2023-07-15 03:25] LABS: Alanine Aminotransferase 23 U/L (12-78); Albumin Level 4.2 g/dl (3.5-5.0); Albumin/Globulin Ratio 1.4 (1.1-1.8); Alkaline Phosphatase 62 U/L (38-126); Anion Gap 10.2 mEq/L (5-15); Aspartate Amino Transferase 30 U/L (17-59); Bilirubin,Total 0.5 mg/dl (0.2-1.3); Blood Urea Nitrogen 19 mg/dl (9-20); Carbon Dioxide 30 mmol/L (22.0-30.0); Creatinine Clearance Estimated 72 mL/min (50-200); Estimated Glomerular Filt Rate 58 ml/min (>60); GFR (African American) 70 ML/MIN (>60); Globulin 3.1 g/dL (1.3-3.2); Glucose 116 mg/dl (74-100); Total Protein,Serum 7.3 g/dl (6.3-8.2)
[2023-07-15 03:37] LABS: Troponin I < 0.01 ng/ml (0.00-0.034)
--- NOTE | 2023-07-15 03:50 | ED_ITS ---
Discharge Plan Disposition Patient Disposition: Home, Self-Care Prescriptions Prescriptions: No Action Entresto 24-26 mg tablet 1 tab PO BID Qty: 60 2RF aspirin 81 mg tablet,delayed release (DR/EC) 81 mg PO DAILY Qty: 90 3RF spironolactone 50 mg tablet 50 mg PO DAILY Qty: 90 3RF atorvastatin 80 mg tablet 80 mg PO HS Qty: 90 3RF furosemide [Lasix] 20 mg tablet 20 mg PO DAILY Qty: 90 3RF metoprolol succinate 25 mg tablet extended release 24 hr See Rx Instructions .ROUTE .COMPLEX Qty: 90 3RF Dose Instruction: TAKE 1 TABLET EVERY DAY Rx Instructions: TAKE 1 TABLET EVERY DAY clopidogrel 75 mg tablet See Rx Instructions .ROUTE .COMPLEX Qty: 90 3RF Dose Instruction: TAKE 1 TABLET EVERY DAY Rx Instructions: TAKE 1 TABLET EVERY DAY metformin 500 mg tablet 500 mg PO DAILY citalopram 10 mg tablet 10 mg PO DAILY Patient Comments: TAKE ONE TABLET BY MOUTH DAILY famotidine 20 mg tablet 20 mg PO BID Patient Comments: take 1 tablet by mouth 2 times per day for stomach/ reflux amitriptyline 25 mg tablet 12.5 mg PO HS Patient Comments: take 1/2 tablet orally daily at bedtime gabapentin 800 mg tablet 800 mg PO Q6HP PRN (Reason: Pain) finasteride 5 mg tablet 5 mg PO DAILY alfuzosin 10 mg tablet extended release 24 hr 10 mg PO DAILY Referrals Follow up/Referrals: Provider,Referral, MD [Primary Care Provider] - See instructions Activity Restrictions/Add. Instructions Additional Instructions/Restrictions: If you change your mind, please return to the emergency department. Please follow-up with your hot molder as soon as possible. Clinical Impressions Clinical Impression: Chest pain at rest Discharge ED Provider: Rudy Burns Adult [facility] General Chief complaint: Chest Pain Stated complaint: chest pain Time Seen by Provider: 07/15/23 03:08 Mode of Arrival: Family Vehicle Source of Information: Patient Limitations: No Limitations Description of Symptoms (Recalled from ER Triage Doc. by RN): 83 yo male presents with CC of midsternal/mid epigastric chest pain. Onset is 5 hours ago. States he ate pork for supper just before. H/o of stents, history of GERD. Denies dyspnea. Denies n/v/d. Reports burping . Pain doesn't radiate. Pain remains in place and doesn't worsen or ease up. History of Present Illness HPI narrative: 83-year-old male with history of coronary artery disease, hypertension, hyperlipidemia, GERD, last stent approximately 1 year ago, presents with central chest pain. Onset about 5 hours prior to arrival. He reports that pain does not radiate. He reports frequent burping. Patient is ambulatory on arrival. He reports some tightness but is not significantly shortness of breath. Related Data Home Medications Medication Instructions Recorded Confirmed alfuzosin 10 mg tablet,extended 10 mg PO DAILY bladder problems 07/12/22 06/27/23 release 24 hr amitriptyline 25 mg tablet 12.5 mg PO HS mood/sleep 07/12/22 06/27/23 citalopram 10 mg tablet 10 mg PO DAILY mood 07/12/22 06/27/23 famotidine 20 mg tablet 20 mg PO BID Acid reflux 07/12/22 06/27/23 finasteride 5 mg tablet 5 mg PO DAILY bladder problems 07/12/22 06/27/23 gabapentin 800 mg tablet 800 mg PO Q6HP PRN Pain 07/12/22 06/27/23 metformin 500 mg tablet 500 mg PO DAILY Diabetes 07/12/22 06/27/23 Previous Rx's Medication Instructions Recorded aspirin 81 mg tablet,delayed 81 mg PO DAILY #90 tabs 07/20/22 release atorvastatin 80 mg tablet 80 mg PO HS #90 tabs 07/20/22 spironolactone 50 mg tablet 50 mg PO DAILY Diuretic #90 tabs 07/20/22 sacubitril 24 mg-valsartan 26 mg 1 tab PO BID #60 tabs 09/28/22 tablet (Entresto) furosemide 20 mg tablet (Lasix) 20 mg PO DAILY #90 tabs 12/07/22 clopidogrel 75 mg tablet See Rx Instructions .Route 07/09/23 .COMPLEX #90 tabs metoprolol succinate 25 mg See Rx Instructions .Route 07/09/23 tablet,extended release 24 hr .COMPLEX #90 tabs Allergies Allergy/AdvReac Type Severity Reaction Status Date / Time farxiga AdvReac Mild Increased Uncoded 06/27/23 14:[address] [facility] Disclaimer: The information contained in this section may have been updated after the patient was seen, as this information can be updated by other users. Medical History Angina pectoris Benign prostatic hyperplasia CAD in chilkoot artery Cataract Coronary artery disease Diabetes mellitus, type 2 Gallbladder disease History of cataract History of gastroesophageal reflux (GERD) History of heart attack History of left heart catheterization (LHC) Hyperlipidemia Hypertension Ischemic cardiomyopathy Non-STEMI (non-ST elevated myocardial infarction) Osteoarthritis Surgical History History of cholecystectomy Family History Other Family history of cancer Social History Smoking Status: Unknown if ever smoked alcohol intake: never current occupational status: retired Travel in the last 8 weeks: Inside the [place] household members: children housing: house marital status: ROS Obtained: Yes All systems reviewed & no additional complaints except as documented Physical Exam General General appearance: alert and in no apparent distress Head Head exam: atraumatic and normocephalic Eye Eye exam: Present normal appearance, PERRL and EOMI ENT ENT exam: Present normal oropharynx and normal external ear exam Neck Neck exam: Present normal inspection and full ROM Chest Chest inspection: Present normal inspection and symmetric chest wall rise; Absent tenderness Respiratory Respiratory exam: Present normal lung sounds bilaterally; Absent respiratory distress Cardiovascular Cardiovascular exam: Present regular rate and normal rhythm Abdominal Exam Abdominal exam: Present soft and distention; Absent tenderness or guarding Extremities Exam Extremities exam: Present normal inspection; Absent edema or joint swelling Back Exam Back exam: Present normal inspection; Absent tenderness Neurological Exam Neurological exam: Present alert and oriented X3; Absent motor sensory deficit Psychiatric Psychiatric exam: Present normal affect and normal mood Skin Skin exam: Present warm, dry and normal color Lymphatic Lymphatic Findings: no adenopathy Medical Decision Making Medical Records Medical records reviewed: Yes I reviewed the patient's medical records. Jerrod Inquiry Pt receiving controlled substance: No Jerrod was queried for this patient: No Vital Signs: 07/15/23 03:12 07/15/23 03:19 07/15/23 06:37 Temperature 97.7 F 98.1 F Temperature Source Oral Oral Pulse Rate 56 L 54 L Pulse Rate [Right Brachial] 65 Respiratory Rate 15 17 Blood Pressure 134/67 Blood Pressure [Right Arm] 124/64 Blood Pressure Mean [Right Arm] 84 Blood Pressure Source Automatic Cuff Blood Pressure Source [Right Arm] Automatic Cuff Blood Pressure Position Sitting Blood Pressure Position [Right Arm] Sitting 02 Sat by Pulse Oximetry 98 Oxygen Delivery Method Room Air Room Air Lab Data Lab results reviewed: Yes I reviewed the patient's lab results. Lab Results 07/15/23 03:12: WBC 8.9, RBC 5.14, Hgb 16.1, Hct 48.5, MCV 94.3 H, MCH 31.3 H, MCHC 33.2, RDW 13.3, Plt Count 220, MPV 8.0, Neut % (Auto) 58.1, Lymph % (Auto) 34.0, Villalba % (Auto) 5.5, Eos % (Auto) 1.8, Baso % (Auto) 0.6, Neut # (Auto) 5.2, Lymph # (Auto) 3.0, Villalba # (Auto) 0.5, Eos # (Auto) 0.2, Baso # (Auto) 0.1, D- Dimer 0.56 H, Sodium 139, Potassium 4.2, Chloride 103, Carbon Dioxide 30, Anion Gap 10.2, BUN 19, Creatinine 1.20, Estimated Creat Clear 72, Estimated GFR 58 L, Est GFR ( Amer) 70, Glucose 116 H, Calcium 9.0, Total Bilirubin 0.5, AST 30, ALT 23, Alkaline Phosphatase 62, Troponin I < 0.01, Total Protein 7.3, Albumin 4.2, Globulin 3.1, Albumin/Globulin Ratio 1.4 07/15/23 05:50: Troponin I < 0.01 07/15/23 03:12 07/15/23 03:12 Orders (Tests/Meds): ED MEDICATIONS Discontinued Medications Generic Name Dose Route Start Last Admin Trade Name Freq PRN Reason Stop Dose Admin Aspirin 325 mg 07/15/23 03:08 07/15/23 03:16 Aspirin 325mg Tablet PO 07/15/23 03:09 325 mg ONCE ONE Administration Lidocaine HCl 15 ml 07/15/23 03:08 07/15/23 03:16 Lidocaine 2% Viscous Alexandra 15ml Udc PO 07/15/23 03:09 15 ml ONCE ONE Administration ORDERS Category Date Time Status CXR --portable [XR chest portable] Stat Exams 07/15/23 03:08 Completed CBC w/Auto Diff [Complete Blood Count Auto Diff] Stat Lab 07/15/23 03:12 Completed CMP [Comprehensive Metabolic Panel] Stat Lab 07/15/23 03:12 Completed D-Dimer Stat Lab 07/15/23 03:12 Completed Troponin I Q3H Lab 07/15/23 03:12 Completed Troponin I Q3H Lab 07/15/23 05:50 Completed HEART Score History (anamnesis): Moderately suspicious ECG: Non-specific disturbance Age: >65 years Risk factors: Atherosclerosis history Troponin: </= normal limit HEART Score: 6 Medical Decision Narrative: 83-year-old male with history of coronary artery disease, GERD, hypertension, hyperlipidemia presents with central chest pain and burping.. History was obtained via conversation with patient, chart review. On arrival, patient is [afebrile, hemodynamically stable, satting appropriately, alert, oriented x4, GCS 15], moving all extremities spontaneously. Full physical exam performed and significant for no significant physical exam abnormalities. Differential includes but is not limited to ACS, PE, GERD, pneumonia, musculoskeletal chest pain. Patient was given full dose aspirin, viscous lidocaine for symptomatic management and correction of underlying abnormalities. Workup initiated including CBC CMP troponin EKG chest x-ray D-dimer. Patient placed on library monitor. On re-evaluation, patient [remains afebrile, HD stable.] On my interpretation of library monitor patient remains in sinus rhythm with mild bradycardia, rates in the 50s. Laboratory workup independently interpreted by me and significant for initial negative troponin, creatinine at baseline, negative D-dimer by years criteria. Imaging independently interpreted by me and significant for no pneumothorax, no focal lung opacity. See radiology read for full review of final results. EKG independently interpreted by me and significant for sinus rhythm, rate of 56, low QRS voltage, poor R wave progression in the precordial leads, no ST elevation. Patient was placed in ED observation status at 3:30 AM for serial cardiac enzymes and continued monitoring. On further reassessment, patient reports that the pain is now coming and going. If symptoms go away all the way, but this occasionally has serious as a 5 out of 10. His repeat troponin was undetectably low. I had repeated discussion with patient regarding his symptoms. I am reassured by the fact that his pain somewhat improved with the viscous lidocaine and the fact that he has had 2 negative troponins. However, he has persistent substernal chest pain, advanced age, extensive cardiac history and the poor R wave progression on his EKG are concerning to me for possible cardiac cause of chest pain. I repeatedly encouraged the patient to be admitted for cardiac monitoring and further evaluation, but patient declined admission multiple times. He and his family reports that if he feels worse or chest pain persist they will come back to the ER. I encouraged him to return to the ER if he changes mind or to call and follow-up with Dr. Asher first thing in the morning on Sunday. Patient was discharged in stable condition. ED observation status was discontinued at 6:15 AM. Total time in observation 2 hours and 45 minutes. Procedures Risk/Benefits of Procedure(s) Were Explained: Yes Critical Care Critical Care Time Critical Care Time: No
[2023-07-15 04:29] LABS: D-Dimer 0.56 ug/mL (0.0-0.5)
--- NOTE | 2023-07-15 04:46 | PC.NURSE ---
Rounded on pt at this time. Pt voices no needs
[2023-07-15 06:20] LABS: Troponin I < 0.01 ng/ml (0.00-0.034)
[2023-07-15 06:37] VITALS: BP 134/67; PULSE 54; RESP 17; TEMP 36.7; O2SAT 96
== END 2023-07-15 06:39 | disposition home or self-care (01) ==
PROVIDERS: Emergency Provider Emergency Medicine
DX: R07.89 Other chest pain (principal); R10.13 Epigastric pain; I25.119 Atherosclerotic heart disease of native coronary artery with unspecified angina pectoris; I10 Essential (primary) hypertension; E78.5 Hyperlipidemia, unspecified; K21.9 Gastro-esophageal reflux disease without esophagitis; E11.36 Type 2 diabetes mellitus with diabetic cataract; I25.5 Ischemic cardiomyopathy; I25.2 Old myocardial infarction
CPT/HCPCS: 71045; 80053; 84484; 85025; 85378; 99285

== ENCOUNTER 2023-10-09 12:46 | Outpatient (CLI) | payer MEDICARE, SELFPAY ==
--- NOTE | 2023-10-09 12:49 | CT_ITS ---
FINAL REPORT CLINICAL HISTORY: cad, non healing wound right great toe. numbness FINDINGS: Thin section axial CT images of the lower abdomen , pelvis and lower extremities were obtained with contrast. Multiplanar reformatted images were also obtained and reviewed. ABDOMEN AND PELVIS: There is no abdominal aortic aneurysm or dissection. The inferior mesenteric artery is patent. There is no significant stenosis of the right common iliac artery or external right iliac artery. There is no significant stenosis of the left common iliac artery or external left iliac artery. The internal iliac arteries are patent. RIGHT LOWER EXTREMITY: There is no significant stenosis of the right common femoral or superficial femoral arteries. The right deep femoral artery is patent. The right popliteal artery is patent. There is occlusion of the mid to distal right anterior tibial artery. The posterior tibial artery and peroneal artery are patent to the distal lower leg. LEFT LOWER EXTREMITY: There is no significant stenosis of the left common femoral or superficial femoral arteries. The left deep femoral artery is patent. The left popliteal artery is patent. There is occlusion of the mid to distal left anterior tibial artery. The posterior tibial artery and peroneal artery are patent to the distal lower leg. OTHER FINDINGS: Severe sigmoid diverticulosis is noted. 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 Authenticated and ERN
[2023-10-09 13:13] LABS: Blood Urea Nitrogen 16 mg/dl (9-20); Estimated Glomerular Filt Rate 64 ml/min (>60); GFR (African American) 77 ML/MIN (>60)
[2023-10-09] MEDS: SODIUM CHLORIDE 0.9% 10ML SYR (RAD ONLY) 10 ML IV (13:53)
[2023-10-09] MEDS: 0.9 % SODIUM CHLORIDE 50 ML VIAL 100 ML IV (13:53)
[2023-10-09] MEDS: IOPAMIDOL-370 (76%);100ML BOTTLE 120 ML IV (13:53)
== END 2023-10-09 23:59 | disposition home or self-care (01) ==
LOC: RAD 12:49
PROVIDERS: PCP Emergency Medicine; Visit Provider Physician Assistant
DX: R20.0 Anesthesia of skin (principal); E78.2 Mixed hyperlipidemia; I25.118 Atherosclerotic heart disease of native coronary artery with other forms of angina pectoris; S91.101A Unspecified open wound of right great toe without damage to nail, initial encounter; I73.9 Peripheral vascular disease, unspecified
CPT/HCPCS: 36415; 73706; 82565; 84520; Q9967

== ENCOUNTER 2023-10-10 09:00 | Outpatient (RCR) | payer MEDICARE, SELFPAY | END 2023-10-10 09:05 | disposition home or self-care (01) | LOC: PT 09:00 | PROVIDERS: Visit Provider Podiatrist | DX: M79.674 Pain in right toe(s) (principal) | CPT/HCPCS: 97163 ==

== ENCOUNTER 2024-12-08 14:35 | Emergency (ER) | payer MEDICARE, SELFPAY ==
--- OUTSIDE RECORDS SUMMARY | 2024-10-22 23:03 | XMS_ITS | Continuity of Care Document ---
Author Organization [facility] Phone Care Team Providers Care Automatic Shirring Machine Operator Name Role Phone MICHAEL FREITAS Primary Attending MICHAEL FREITAS Admitting MICHAEL FREITAS Unavailable MICHAEL FREITAS Primary Care ALLERGIES AND ADVERSE REACTIONS ALLERGIES AND ADVERSE REACTIONS Code System Allergy Substance Adverse Reaction Date Reaction (Severity) Comment Status Reported By Updated By No Known Allergies [id number] on July 12, 2022 11:02:53 AM [facility] FAMILY HISTORY RELATION: Father Status: Cause of : Pneumonia Age at : 48 SNOMED-CT Diagnosis Age At Onset [id number] Pneumonia RELATION: Mother Status: Cause of : Primary malignant neoplasm of pancreas Age at : 59 SNOMED-CT Diagnosis Age At Onset Information not available RESULTS Patient: NICHOLAS JOHNSON Date of : [birth year] LABORATORY RESULTS Information is not available LABORATORY NARRATIVE RESULTS Information is not available RADIOLOGY RESULTS ORDER 100: CERVICL 2 TO 3V ( LOINC: 67074-3) ORDER DATE: October 20, 2024 3:20:00 PM [facility] PERFORMING LAB: [address] [id number] Final Result Date: October 20 3:31:[address] [place] [address] Name: JENIFER PETERSON Exam Date: 10/20/2024 : 1940 Age 84 years Gender: M Physician: MICHAEL FREITAS Facility: [facility] Facility HSV: Outpatient Exam: CERVICL 2 TO 3V Cervical spine multiple views HISTORY: Neck pain TECHNIQUE: 3 views COMPARISON: None FINDINGS: Mild degenerative changes C5-6 and disc space narrowing C6-7 with moderate osteophytes. No fracture or malalignment detected. Demineralized bones. IMPRESSION: Mild degenerative changes. Electronically signed by: Byron Domínguez MD 10/22/2024 10:08 AM EDT RP Dictated By: BYRON DOMÍNGUEZ Transcribed By: Transcribed On: 10/20/2024 11:31 AM Electronically signed by: BYRON DOMÍNGUEZ 10/20/2024 Thank you for referring JENIFER PETERSON to [facility]. Legally authenticated by CATRACHITA MATTHEWS MD 2024-10-20 11:31:40 PATHOLOGY NARRATIVE RESULTS Information is not available MICROBIOLOGY RESULTS No Micro Labs/Results Exist for Patient BLOOD ADMIN RESULTS Information is not available MEDICATIONS HOME MEDICATIONS Status RXNORM NDC Medication Dose Route Frequency Dates Comments Reported By Updated By Drug Treatment Unknown DISCHARGE MEDICATIONS Status RXNORM NDC Medication Dose Route Frequency Dates Comments Physician Updated By No Discharge Medication Info rmation Available INPATIENT MEDICATIONS Status RXNORM NDC Medication Dose Route Frequency Rat e Quantity Dates Comments Physician Updated By No Inpatient Medication Info rmation Available SOCIAL HISTORY SOCIAL HISTORY SNOMED-CT Social History Element Description Effective Dates Offered Cessation Comment UpdatedBy [id number] Historical Tobacco smoking status Never Smoked [id number] on July 27, 2023 5:22:43 PM [facility] [id number] Historical Tobacco smoking status Former Smoker End: August 19, 1999 5:00:00 AM [facility] No Pt. quit smoking 17 years ago , when he had heart attack [id number] on August 18, 2016 5:08:12 PM [facility] SOCIAL HISTORY - Gender Sex: Male SOCIAL HISTORY - Status : status i nformation is not available Intention in Next Year: intention information is not available SOCIAL HISTORY - Sexual Behavior Sexual Orientation Gender Identity SNOMED-CT Description SNO MED -CT Description Activity Level No of Partners Partner Type UpdatedBy Information is not available HEALTH CONCERNS Problems Concern Status Health Concern problem infor mation not available. Smoking Status Status Years Used Consumed packs p er day Health Concern smoking histo ry information not available. Family History Concern Status Health Concern family histor y information not available. ENCOUNTERS ENCOUNTER INFORMATION Reason for Visit NECK PAIN Admission October 20, 2024 3:12:[address] [id number] Discharge October 20, 2024 3:12:00 PM [facility] DISC HARGED TO HOME OR SELF CARE ENCOUNTER DIAGNOSES Notes information is not yazmin ilable. Code System Diagnosis Onset Date Diagnosis information is not available. ABSTRACT DIAGNOSES Code System Diagnosis Updated By M54.2 ICD10 CERVICALGIA [id number] on October 22, 2024 6:22:16 AM [facility] M54.2 ICD10 CERVICALGIA [id number] on October 22, 2024 6:22:17 AM [facility] CARE TEAM Care Automatic Shirring Machine Operator Role MICHAEL FREITAS Primary Attending MICHAEL FREITAS Admitting MICHAEL FREITAS Referring MICHAEL FREITAS Primary Care CARE TEAM CARE household personal assistant Role on Team Status Start Date End Date Update d By FORTINO RIOS PCP normal October 20, 2024 4:00:00 AM [facility] October 20, 2024 3:12:00 PM [facility] [id number] on October 20, 2024 3:13:32 PM [facility] FORTINO RIOS Referring normal October 20, 2024 4:00:00 AM [facility] October 20, 2024 3:12:00 PM [facility] [id number] on October 20, 2024 3:13:32 PM [facility] FORTINO RIOS Attending normal October 20, 2024 4:00:00 AM [facility] October 20, 2024 3:12:00 PM [facility] [id number] on October 20, 2024 3:13:32 PM [facility] FORTINO RIOS Admitting normal October 20, 2024 4:00:00 AM [facility] October 20, 2024 3:12:00 PM [facility] [id number] on October 20, 2024 3:13:32 PM [facility]
[2024-12-08] VITALS (10 sets, daily range): BP systolic 113–134; BP diastolic 62–79; PULSE 50–86; RESP 14–19; TEMP 36.6–36.8; O2SAT 93–98; BMI 34.4
--- NOTE | 2024-12-08 14:37 | ECG_ITS ---
APPROVED REPORT Exam: Resting ECG HR:58 bpm ECG Measurements Heart Rate [address] 176 P 76 QRSd 93 QRS -6 QT 397 T -2 QTc 394 Conclusion SINUS BRADYCARDIA LOW QRS VOLTAGE [QRS DEFLECTION < 0.5/1.0 mV IN LIMB/CHEST LEADS] ANTERIOR MYOCARDIAL INFARCTION , PROBABLY OLD [40+ ms Q WAVE AND/OR ST/T ABNORMALITY IN V3/V4] INFERIOR MYOCARDIAL INFARCTION , PROBABLY OLD [40+ ms Q WAVE AND/OR ST/T ABNORMALITY IN II/aVF] ABNORMAL ECG INTERPRETATION BASED ON A DEFAULT AGE OF 40 YEARS Electronically signed by : NAGI BENNETT, 12/09/2024 08:37:33
--- NOTE | 2024-12-08 14:39 | ED_ITS ---
<Statement entered by Dannielle Daniel DO - 12/09/24 20:10> I was consulted by the NAHID, and we discussed the complexity of the problems being addressed. I approved the treatment and management plan for this patient's care in the emergency department, thus performing a substantive portion of the medical decision making. Dannielle Daniel DO Discharge Plan Disposition Patient Disposition: Home, Self-Care Condition: Good Prescriptions Prescriptions: No Action Entresto 24-26 mg tablet 1 tab PO BID Qty: 60 2RF aspirin 81 mg tablet,delayed release (DR/EC) 81 mg PO DAILY Qty: 90 3RF spironolactone 50 mg tablet 50 mg PO DAILY Qty: 90 3RF furosemide [Lasix] 20 mg tablet 20 mg PO DAILY Qty: 90 3RF clopidogrel 75 mg tablet See Rx Instructions .ROUTE .COMPLEX Qty: 90 3RF Dose Instruction: TAKE 1 TABLET EVERY DAY Rx Instructions: TAKE 1 TABLET EVERY DAY metoprolol succinate 25 mg tablet extended release 24 hr See Rx Instructions .ROUTE .COMPLEX Qty: 90 3RF Dose Instruction: TAKE 1 TABLET EVERY DAY Rx Instructions: TAKE 1 TABLET EVERY DAY atorvastatin 80 mg tablet 80 mg PO HS Qty: 90 3RF metformin 500 mg tablet 500 mg PO DAILY citalopram 10 mg tablet 10 mg PO DAILY Patient Comments: TAKE ONE TABLET BY MOUTH DAILY famotidine 20 mg tablet 20 mg PO BID Patient Comments: take 1 tablet by mouth 2 times per day for stomach/ reflux amitriptyline 25 mg tablet 12.5 mg PO HS Patient Comments: take 1/2 tablet orally daily at bedtime gabapentin 800 mg tablet 800 mg PO Q6HP PRN (Reason: Pain) finasteride 5 mg tablet 5 mg PO DAILY alfuzosin 10 mg tablet extended release 24 hr 10 mg PO DAILY Referrals Follow up/Referrals: John Mckeon II, MD [Staff Physician, Gastroenterology] - See instructions Rosa Kirby MD [Primary Care Provider, Family Practice] - See instructions Activity Restrictions/Add. Instructions Additional Instructions/Restrictions: As we discussed I am referring you to gastroenterology. Please call tomorrow to make the appointment. If you have persistent new or worsening signs or symptoms follow-up with your PCP return to the ER as needed. Clinical Impressions Clinical Impression: Chest pain Print Language Print Language: Norwegian Discharge ED Provider: Jordan Nichols Adult HPI General Chief complaint: Chest Pain Stated complaint: Chest Pain Time Seen by Provider: 12/08/24 14:39 History of Present Illness HPI narrative: Patient presents for evaluation of chest pain. Patient reports that he had acute onset of left-sided chest pain around 1 PM today. He does have a significant cardiac history and history of previous stents. He does have nitroglycerin at home however he did not take it. He denies any fever shortness of breath hemoptysis hematochezia melena nausea vomiting diarrhea. Patient states that the majority of his symptoms have abated since arrival in the emergency department but he still does have pain currently Related Data Home Medications ?Medication ?Instructions ?Recorded ?Confirmed alfuzosin 10 mg tablet,extended 10 mg PO DAILY bladder problems 07/12/22 10/18/23 release 24 hr amitriptyline 25 mg tablet 12.5 mg PO HS mood/sleep 10/18/23 citalopram 10 mg tablet 10 mg PO DAILY mood 07/12/22 10/18/23 famotidine 20 mg tablet 20 mg PO BID Acid reflux 01/2410/18/23 finasteride 5 mg tablet 5 mg PO DAILY bladder proble ms 07/12/22 10/18/23 gabapentin 800 mg tablet 800 mg PO Q6HP PRN Pain 01/2410/18/23 metformin 500 mg tablet 500 mg PO DAILY Diabetes 01/2410/18/23 Previous Rx's ?Medication ?Instructions ?Recorded aspirin 81 mg tablet,delayed 81 mg PO DAILY #90 tabs 0 07/20/22 release spironolactone 50 mg tablet 50 mg PO DAILY Diuretic #9 0 tabs 07/20/22 sacubitril 24 mg-valsartan 26 mg 1 tab PO BID #60 tabs 09/28/22 tablet (Entresto) furosemide 20 mg tablet (Lasix) 20 mg PO DAILY #90 tab s 12/07/22 clopidogrel 75 mg tablet See Rx Instructions .Route 1 06/28/23 .COMPLEX #90 tabs metoprolol succinate 25 mg See Rx Instructions .Route 04/28/24 tablet,extended release 24 hr .COMPLEX #90 tabs atorvastatin 80 mg tablet 80 mg PO HS #90 tabs 4 Allergies Allergy/AdvReac Type Severity Reaction Status Date / Time dapagliflozin (From Farxiga) AdvReac Intermediate INCREASED Verified 12/08/24 15:38 URINE OUTPUT PFSH PFS Disclaimer: The information contained in this section may have been updated after the patient was seen, as this information can be updated by other users. Medical History (Updated 12/08/24 @ 18:31 by JO Andrade) PVD (peripheral vascular disease) Non-healing open wound of toe Numbness in feet Angina pectoris Coronary artery disease Ischemic cardiomyopathy Non-STEMI (non-ST elevated myocardial infarction) CAD in [place] artery Benign prostatic hyperplasia Osteoarthritis History of gastroesophageal reflux (GERD) Gallbladder disease Diabetes mellitus, type 2 History of cataract Hyperlipidemia Hypertension History of heart attack Cataract History of left heart catheterization (LHC) Surgical History History of cholecystectomy Family History Other Family history of cancer Social History Smoking Status: Former smoker alcohol intake: never current occupational status: retired Travel in the last 8 weeks?: Inside the [place] household members: children housing: house marital status: Have you lived/traveled outside [place] in past 30 days?: No Contact w/someone who lives/traveled outside [place] past 30 days?: No Exposure to someone with infectious disease in past 14 days?: No Do you have a fever (greater than 100.4 F or 38 C)?: No Have you tested positive for COVID-19?: No Exposed to someone with COVID-19 in past 14 days?: No Do you have a sore throat?: No Do you have a cough?: No Do you have any weakness?: No Do you have any diarrhea?: No Are you experiencing any unusual bleeding?: No Do you have any muscle aches/pain?: No Do you have any abdominal pain?: No Are you experiencing loss of taste or smell?: No Other Medical History Have you received the Flu Vaccine for this season: No Have you received the Pneumonia Vaccine: Yes ROS Obtained: Yes Systems reviewed as appropriate & no additional complaints except as documented Physical Exam General General appearance: alert Respiratory Respiratory exam: Present normal lung sounds bilaterally Cardiovascular Cardiovascular exam: Present regular rate Neurological Exam Neurological exam: Present alert and oriented X3 Medical Decision Making Medical Records Medical records reviewed: Yes I reviewed the patient's medical records. Screening: Per USPSTF and CDC recommendations, given the prevalence of disease in our region, it is our hospital?s policy to screen for HIV and viral Hepatitis for all patients aged 18 and over and those with ongoing risk factors. Jerrod Inquiry Pt receiving controlled substance: No Vital Signs: 12/08/24 14:35 12/08/24 15:00 12/08/24 16:01 Temperature 97.9 F Temperature Source Oral Pulse Rate 50 L Pulse Rate [Right] 58 L Respiratory Rate 19 14 Blood Pressure 126/69 131/68 Blood Pressure [Right Arm] 128/79 Blood Pressure Mean [Right Arm] 95 Blood Pressure Source [Right Arm] Automatic Cuff 02 Sat by Pulse Oximetry 98 96 Oxygen Delivery Method Room Air 12/08/24 16:31 12/08/24 17:01 12/08/24 17:07 Temperature Temperature Source Pulse Rate 57 L 57 L 86 Pulse Rate [Right] Respiratory Rate Blood Pressure 116/62 123/68 129/74 Blood Pressure [Right Arm] Blood Pressure Mean [Right Arm] Blood Pressure Source [Right Arm] 02 Sat by Pulse Oximetry 96 94 L 93 L Oxygen Delivery Method 12/08/24 17:31 12/08/24 18:00 12/08/24 18:31 Temperature Temperature Source Pulse Rate 61 61 61 Pulse Rate [Right] Respiratory Rate Blood Pressure 113/63 134/77 128/78 Blood Pressure [Right Arm] Blood Pressure Mean [Right Arm] Blood Pressure Source [Right Arm] 02 Sat by Pulse Oximetry 97 97 96 Oxygen Delivery Method 12/08/24 18:33 Temperature 98.2 F Temperature Source Pulse Rate 52 L Pulse Rate [Right] Respiratory Rate 18 Blood Pressure 128/78 Blood Pressure [Right Arm] Blood Pressure Mean [Right Arm] Blood Pressure Source [Right Arm] 02 Sat by Pulse Oximetry Oxygen Delivery Method Room Air Lab Data Lab results reviewed: Yes I reviewed the patient's lab results. Lab Results 12/08/24 17:10: Troponin I < 0.01 12/08/24 : WBC 7.8, RBC 4.90, Hgb 14.9, Hct 44.7, MCV 91.2, MCH 30.4, MCHC 33.3, RDW 12.5, Plt Count 196, MPV 10.2, Neut % (Auto) 61.4, Lymph % (Auto) 27.1, [place] % (Auto) 8.2, Eos % (Auto) 2.6, Baso % (Auto) 0.3, Neut # (Auto) 4.8, Lymph # (Auto) 2.1, [place] # (Auto) 0.6, Eos # (Auto) 0.2, Baso # (Auto) 0.0, D-Dimer 0.61 H, Sodium 140, Potassium 4.1, Chloride 99, Carbon Dioxide 30, Anion Gap 15.1 H, BUN 16, Creatinine 1.20, Estimated Creat Clear 71, Estimated GFR 58 L, Est GFR ( Amer) 70, Glucose 102 H, Calcium 8.9, Magnesium 1.8, Total Bilirubin 0.8, AST 25, ALT 14, Alkaline Phosphatase 55, Troponin I < 0.01, Total Protein 7.2, Albumin 4.4, Globulin 2.8, Albumin/Globulin Ratio 1.6, Procalcitonin 0.058, HCV Ab LENNOX w/Rflx PCR Qn Negative, HIV Ag/Ab Combo Qual Negative 12/08/24 Unknown 12/08/24 Unknown Orders (Tests/Meds): ED MEDICATIONS Discontinued Medications Generic Name Dose Route Start Last Admin Trade Name Freq PRN Reason Stop Dose Admin Acetaminophen 1,000 mg 12/08/24 14:58 12/08/24 15:20 Acetaminophen 500mg Tab PO 12/08/24 14:59 1,000 mg ONCE ONE Administration Aspirin 324 mg 12/08/24 14:58 12/08/24 15:20 Aspirin 81mg Chewable Tablet PO 12/08/24 14:59 324 mg ONCE ONE Administration Belladonna Alkaloids 60 ml 12/08/24 15:35 12/08/24 15:47 Belladonna Alkaloids 60 Ml Ml PO 12/08/24 15:36 60 ml ONCE ONE Administration Ketorolac Tromethamine 15 mg 12/08/24 14:58 12/08/24 15:20 Ketorolac 30mg/Ml Vial IV 12/08/24 14:59 15 mg ONCE ONE Administration ORDERS Category Date Time Status Chest XR 2 view (NOT portable) [XR chest 2V] Stat Exams 12/08/24 14:58 Completed CBC w/Auto Diff [Complete Blood Count Auto Diff] Stat Lab 12/08/24 Completed CMP [Comprehensive Metabolic Panel] Stat Lab 12/08/24 Completed D-Dimer Stat Lab 12/08/24 Completed HIV Combo Stat Lab 12/08/24 Completed Hepatitis C Ab Qual. W/ RFX Stat Lab 12/08/24 Completed Magnesium Stat Lab 12/08/24 Completed Procalcitonin Stat Lab 12/08/24 Completed Trop I [Troponin I] Stat Lab 12/08/24 Completed Troponin I Q3H Lab 12/08/24 17:10 Completed HEART Score History (anamnesis): Slightly suspicious ECG: Non-specific disturbance Age: >65 years Risk factors: Atherosclerosis history Troponin: </= normal limit HEART Score: 5 Medical Decision Narrative: In summary patient is a 84-year-old gentleman who presents to the emergency department for evaluation of chest pain. Patient is hemodynamically stable with a blood pressure 128/79 pulse 58 sinus rhythm on the bedside monitor breathing 90 times a minute satting at 98% on room air upon arrival, afebrile at 97.9. Physical exam is remarkable for no reproducible chest pain on palpation of the chest wall, breath sounds clear and equal bilaterally to the bases without adventitious sounds with no increased work of breathing or accessory muscle use, abdomen soft nontender no rebound guarding or rigidity with normal bowel sounds.. Differential diagnosis includes ACS versus pneumonia versus PE versus esophagitis versus gastritis versus GERD etc. Initial workup will be conducted with hematologic labs twelve-lead EKG plain film chest x-ray. Initial interventions include aspirin Tylenol Toradol GI cocktail. Initial workup reviewed by me shows that his hematologic labs are nonactionable and his troponin is undetectable, blood interpretation of his chest x-ray shows no acute processes and twelve-lead EKG did not show evidence of ACS. Given this the patient was placed in observation status at 1530. Medical necessity for observational status is serial troponins. The patient was provided serial reevaluations continuous cardiac monitoring pulse oximetry while awaiting results. Second troponin is also undetectable. Upon reevaluation patient is completely symptom-free and was so after the GI cocktail.. Given this patient is appropriate for discharge with referral to gastroenterology for gastrointestinal causes continue follow-up with his developmental therapist as scheduled and should he have any persistent new or worsening signs or symptoms follow-up with his PCP or return to the ER as needed.. Total time in observation was 3 hours. Critical Care Critical Care Time Critical Care Time: No
--- NOTE | 2024-12-08 14:58 | XR_ITS ---
FINAL REPORT TECHNIQUE: Chest PA & Lateral CLINICAL HISTORY: Chest pain, burping, difficulty breathing COMPARISON: 05/15/2023 FINDINGS: 2 views of the chest were performed. The heart size is normal. The mediastinum is within normal limits. There is no acute cardiopulmonary process. There are mild chronic changes at the lung bases. There are no pleural effusions. There is no pneumothorax. The bony thorax appears intact. IMPRESSION: No acute cardiopulmonary process. Reviewed, Interpreted and Dictated by Antoni Silva MD Transcribed by Jade Mckeon Authenticated and [facility]
[2024-12-08 15:10] LABS: Hematocrit 44.7 % (42.0-52.0); Hemoglobin 14.9 g/dL (14.1-18.0); Immature Granulocytes % 0.4 %; Mean Corpuscular HGB Conc 33.3 g/dL (31.8-35.4); Mean Corpuscular Hemoglobin 30.4 pg (27.0-31.2); Mean Corpuscular Volume 91.2 fl (80-94); Nucleated Red Blood Cells % 0 %; Platelet Count 196 K/mm3 (142-424); Red Blood Count 4.90 M/mm3 (4.60-6.20); Red Cell Distribution Width-SD 41.6 fL; White Blood Count 7.8 K/mm3 (4.8-10.8)
[2024-12-08 15:11] LABS: Alanine Aminotransferase 14 U/L (12-78); Albumin Level 4.4 g/dl (3.5-5.0); Albumin/Globulin Ratio 1.6 (1.1-1.8); Alkaline Phosphatase 55 U/L (38-126); Anion Gap 15.1 mEq/L (5-15); Aspartate Amino Transferase 25 U/L (17-59); Bilirubin,Total 0.8 mg/dl (0.2-1.3); Blood Urea Nitrogen 16 mg/dl (9-20); Calcium 8.9 mg/dl (8.4-10.2); Carbon Dioxide 30 mmol/L (22.0-30.0); Chloride 99 mmol/L (98-107); Creatinine Clearance Estimated 71 mL/min (50-200); Creatinine,Serum 1.20 mg/dl (0.66-1.25); Estimated Glomerular Filt Rate 58 ml/min (>60); GFR (African American) 70 ML/MIN (>60); Globulin 2.8 g/dL (1.3-3.2); Glucose 102 mg/dl (74-100); Magnesium 1.8 mg/dl (1.6-2.3); Potassium 4.1 mmoL/L (3.5-5.1); Sodium 140 mmol/L (136-145); Total Protein,Serum 7.2 g/dl (6.3-8.2)
[2024-12-08 15:16] LABS: D-Dimer 0.61 ug/mL (0.0-0.5)
[2024-12-08] MEDS: KETOROLAC 30MG/ML VIAL 15 MG IV (15:20)
[2024-12-08] MEDS: ASPIRIN 81MG CHEWABLE TABLET 324 MG PO (15:20)
[2024-12-08] MEDS: ACETAMINOPHEN 500MG TAB 1000 MG PO (15:20)
[2024-12-08 15:24] LABS: Troponin I < 0.01 ng/ml (0.00-0.034)
[2024-12-08 15:30] LABS: Procalcitonin 0.058 ng/mL (0.0-2.0)
--- OUTSIDE RECORDS SUMMARY | 2024-12-08 15:34 | XMS_ITS | Data Portability ---
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 Plan of Treatment Reminders Order Date Submit Date Provider Last Modified By Organization Details Last Modified Time Details Appointments None recorded. Lab None recorded. Referral None recorded. Procedures upper endoscopy procedure (EGD) (PROC) [address] [place], [address], 4 13:01:00 upper endoscopy procedure (EGD) (PROC) [email or web address] [place], [place], [address], 4 13:01:00 Surgeries None recorded. Imaging None recorded. Medication Orders pantoprazo le 40 mg tablet,del ayed release 2023 024 [facility], [address] [place] [address], [id number], 5 11:34:55 Nexium 40 mg capsule,de layed release 2023 024 [facility], [address] [place] [address], [id number], 4 12:32:06 Patient TargetsNo targets recorded. Patient InstructionsNo instructions recorded. Reason for Referral None Reported. Results Created Date Observation Date Name Description Value Unit Range Abnormal Flag Note LastModifiedBy Organization Detail LastModifiedTime Result Notes None recorded. Problems Name Problem SNOMED Code Status Onset Date Resolution Date Notes Provider Name and Address Organization Details Recorded Time Hyperlipidemia 25473877 Active 2023 Paulette Alvarez g[place], [place] - [facility] - [place] 4 10:45:41 Neuropathy 157139439 Active 2023 Paulette Alvarez null, [place] [facility] [place] 4 10:45:49 Gastroesophage al reflux disease 186876405 Active 2023 Paulette pierre, [place] [facility] 4 10:46:00 Prediabetes 760249126 Active 2023 Paulette pierre, [place] [facility] 4 10:46:08 Myocardial infarction 92693650 Active 2023 Paulette pierre, [place] [facility] [place] 4 11:06:12 Dysphagia 28073580 Active 2023 Gloria Pak NP [address], [address], [place], [address], [place] [facility] [place] & [place] 4 12:53:56 Gastro-esophag eal reflux disease with esophagitis 172994161 Active 2023 Gloria Pak NP [address], [address], [place], [address], [place] [facility] [place] 4 16:04:26 Atypical chest pain 356278166 Active 2023 Gloria Pak NP [address], [address], [place], [address], [place] [facility] [place] 4 16:04:26 Stricture of esophagus 68943334 Active 2023 Gloria Pak NP [address], [address], [place], [address], [place] [facility] [place] 4 09:00:57 Hiatal hernia 01910075 Active 2023 Gloria Pak NP [address], [address], [place], [address], [place] - [place] - [place] & [place] 4 09:01:02 Increased belching 36561172 Active 2023 Gloria Pak NP [address], [address], [place], [address], [place] - [facility] - [place] & [place] 4 09:01:10 Problem Notes None recorded. Procedures Surgical History Date Name Laterality Status Provider Name and Address Organization Details Recorded Time 08/01/19 24 EGD/Endoscopy completed Sammi Childers [place] Luly [facility] & [place] 08/13/2023 11:24:03 06/04/19 23 Cardiovascular Surgery completed Mag [place]ON[place] - [place] & [place] 12/18/2023 08:41:29 06/04/18 90 Cholecystectomy completed Paulette Mauricio [facility] & [place] 07/17/2023 11:00:23 Stent Placement completed Paulette CORON[place] - [place] & [place] 07/17/2023 11:00:37 procedure on toenail completed Paulette Mauricio [facility] & [place] 07/17/2023 11:00:42 Imaging Results None recorded. Procedure Notes None recorded. Medical Equipment None Reported. Allergies No known drug allergies Medications Name Sig Start Date Stop Date Status Note LastModified by Organization Details LastModified Time cyclobenzap rine 10 mg tablet take 1/2- 1 tablet every 8 hours as needed for spasm/ pain in back 12/14 completed Not Available Not Available Not Available methocarbam ol 500 mg tablet active Not Available Not Available Not Available metformin 500 mg tablet active Not Available Not Available Not Available atorvastati n 80 mg tablet active Not Available Not Available Not Available doxycycline hyclate 100 mg capsule Take 1 capsule by mouth twice daily 12/14 completed Not Available Not Available Not Available naproxen 375 mg tablet take 1 tablet orally every 12 hours with food or milk as needed for pain 12/14 completed Not Available Not Available Not Available citalopram 10 mg tablet take 1 tablet orally daily active Not Available Not Available No t Available clopidogrel 75 mg tablet active Not Available Not Available Not Available hydrocodone 10 mg-acetamin ophen 325 mg tablet 12/14 completed Not Available Not Available Not Available gabapentin 800 mg tablet take 1 tab by mouth every morning, 1 tab every qafternoo n, 2 tabs at bedtime active Not Available Not Available No t Available cephalexin 500 mg capsule Take 1 capsule orally three times daily. active Not Available Not Available No t Available pantoprazol e 40 mg tablet,nataly yed release Take 1 tablet twice a day by oral route before meal(s) for 30 days. active Not Available Not Available No t Available esomeprazol e magnesium 40 mg capsule,del ayed release Take 1 capsule by mouth twice a day for 90 days. active Not Available Not Available No t Available mupirocin 2 % topical ointment Apply to affected area twice daily 12/14 completed Not Available Not Available Not Available furosemide 20 mg tablet TAKE ONE TABLET BY MOUTH DAILY 12/14 completed Not Available Not Available Not Available metoprolol succinate ER 25 mg tablet,exte nded release 24 hr active Not Available Not Available Not Available methylpredn isolone 4 mg tablets in a dose pack 12/14 completed Not Available Not Available Not Available finasteride 5 mg tablet active Not Available Not Available Not Available ramipril 5 mg capsule 12/14 completed Not Available Not Available Not Available spironolact one 50 mg tablet active Not Available Not Available Not Available alfuzosin ER 10 mg tablet,exte nded release 24 hr active Not Available Not Available Not Available naloxone 4 mg/actuatio n nasal spray active Not Available Not Available Not Available Vitals Date Recorded Body height Body mass index (BMI) Body weight Body temperature Oxygen saturation Oxygen saturation in Arterial blood by Pulse oximetry Heart rate Provider Name and Address Organization Details Last Updated DateTime 4 177.8 cm 34.7 kg/m2 428504. 35 g 97 [degF] 95 % 95 % 80 /min Paulette ROSS - [place] - [place] & [place] 4 11:05:57 Date Recorded Body height Body mass index (BMI) Body weight Body temperature Oxygen saturation Oxygen saturation in Arterial blood by Pulse oximetry Heart rate Provider Name and Address Organization Details Last Updated DateTime 4 177.8 cm 35.3 kg/m2 006195 g 97.5 [degF] 97 % 97 % 74 /min Mag Modenabenji [facility] & [place] 4 08:41:08 Date Recorded Body height Body mass index (BMI) Body weight Body temperature Oxygen saturation Oxygen saturation in Arterial blood by Pulse oximetry Heart rate Provider Name and Address Organization Details Last Updated DateTime 4 177.8 cm 34.3 kg/m2 382591. 86 g 97.3 [degF] 95 % 95 % 69 /min Mag Dewey [place] [facility] & [place] 4 08:56:18 Social History Question Answer Notes LastModified by [employer]igos [employer]igos Details LastModified Time Tobacco Smoking Status Former Smoker Mag pierre, [place] [facility] & [place] 12/18/2023 08:41:26 Are You Blind Or Do You Have Difficulty Seeing? No Information not available 12/18/2023 What Was The Date Of Your Most Recent Tobacco Screening? 12/15/2023 Information not available 12/18/2023 Are You Passively Exposed To Smoke? No Information not available 12/18/2023 How Many Years Have You Smoked Tobacco? 35 Information not available 12/18/2023 Sex: Unknown Functional Status Question Answer Note LastModified by [employer]igos [employer] Amigos Details LastModified Time Do you use any illicit or recreational drugs? No [email or web address] Information not available 07/17/2023 What is your level of alcohol consumption? None [email or web address] Information not available 07/17/2023 What is your exercise level? Occasional Information not available 12/18/2023 Mental Status Question Answer Note LastModified by Organization D etails LastModified Time Do you feel stressed (tense, restless, nervous, or anxious, or unable to sleep at night)? [id number] Information not available 12/18/2023 Family History Nothing Reported. Medical History Condition Response Diabetes Y Vision or Eye Problems Y Ear or Hearing Problems Y Congestive Heart Failure (CHF) Y Hyperlipidemia Y Back Problems Y GI Problems Y Reflux/GERD Y GERD/Reflux Y Heart Attack (MN) Y Heart Disease Y Headaches Y Hypertension N Past Encounters Encounter ID Performer Location Encounter Start Date Encounter Closed Date Diagnosis/Indication Diagnosis SNOMED-CT Code Diagnosis ICD10 Code Diagnosis Note [id number] JOSEF Singh [address] [place] [id number] 07/17/2023 10:34:34 07/18/2023 14:52:00 Dysphagia 86660627 R13.10 1-2 year history dysphagia to liquids and occasional ly solid foods. Plan for EGD to evaluate for esophagiti s, stricture, other. He will need cardiac clearance from Cardiology , Dr. Asher, prior to scheduling as he is currently prescribed Plavix due to hx MN with stent placement. Gastro-eso phageal reflux disease with esophagitis 661986032 K21.00 currently prescribed Nexium 40 mg daily with occasional breakthrou gh symptoms at this time. Recommend continued use of PPI as prescribed as well as avoidance of known food triggers. Atypical chest pain 1025 [address] R07.89 Episode of chest pain and abdominal bloating prompting ED evaluation last week at [facility]. Records have been requested for review. Patient reports negative cardiac workup at that time. Recommend EGD to further evaluate after cardiac clearance has been obtained from Dr. Asher. [id number] JOSEF Singh [address] [place] [id number] 12/18/2023 08:36:48 12/18/2023 09:34:22 Gastro-esophageal reflux disease with esophagitis 278905683 K21.00 EGD 08/01/2023 with active esophagiti s noted on pathology. Patient continues Nexium 40 mg prior to evening meal with recent increased symptoms. Recommend increasing Nexium 40 mg p.o. b.i.d. x3 months. Recommend continued use of Pepcid p.r.n.. Recommend continued reflux precaution s with avoidance of known food triggers and avoidance of eating 2-4 hours prior to lying down. Stricture of esophagus 06025568 K22.2 Mild narrowing noted on EGD 08/01/2023 status post esophageal dilatation up to 20 mm using dilating balloon with resolution symptoms. Hiatal hernia 52151582 K 44.9 Small hiatal hernia noted on EGD 08/01/2023 . Increased belching 33126 005 R14.2 Increased belching and dyspepsia over the past several weeks. Recommend increasing PPI b.i.d. as above with continued reflux precaution s. Will continue to monitor. Denies nausea or vomiting. [id number] Gloria Pak NP [facility] [address] [place] [address] [address] [place] [id number] 03/20/2024 08:26:52 03/20/2024 09:10:46 Gastro-esophageal reflux disease with esophagitis 730587886 K21.00 daily uncontroll ed symptoms, worse at night. No improvemen t with esomeprazo le 40 mg b.i.d., currently buying OTC Nexium 20 mg taking 2 tabs daily with uncontroll ed symptoms. He continues to avoid eating late and tries to monitor portion sizes. Recommend starting pantoprazo le 40 mg p.o. b.i.d. 30 minutes prior to meals. EGD 08/01/2023 with active esophagiti s noted on pathology. Stricture of esophagus 61411097 K22.2 Mild narrowing noted on EGD 08/01/2023 status post esophageal dilatation up to 20 mm using dilating balloon with resolution symptoms. Hiatal hernia 31945407 K 44.9 Small hiatal hernia noted on EGD 08/01/2023 . Health Concerns Section Related Observation LastModified by Organization Detai ls LastModified Time None Recorded Concern Status LastModified by Organization Details LastModified Time None Recorded Advance Directives Directive None Recorded Payers Insurance Date Sequence Insurance Name Policy Number Policy Son Covered Member ID Son Member ID Guarantor Name 03/17/2024 1 [employer] (MEDICARE REPLACEMENT/A DVANTAGE - PPO) Ricki Santana [id number] Ricki Santana Notes Date Note Type Note Provider Name and Address Organization Details Recorded Time 07/17/2023 text/html 83-year-old male with past medical history GERD, CHF, MN with stent placement, and hyperlipidemia. Patient presents to clinic today for evaluation of dysphagia and recent episode of chest pain. Evaluated [facility] ED last week due to chest pain at which time cardiac etiology was ruled out. Records have been requested for review. He follows with Dr. Asher due to history of MN with stent placement 07/2022, currently prescribed Plavix. He reports 1-2 year history of dysphagia to liquids and occasionally solid foods. Prescribed Nexium for treatment of GERD, reports occasional breakthrough symptoms at this time. Denies nausea, vomiting, or melena. Gloria Pak NP [address], [address], [place], [address], [facility] & [place] 07/17/2023 16:06:09 12/18/2023 text/html Patient returns to clinic today with complaints of increased belching and GERD. EGD 08/01/[address] Rocha noted mild narrowing in the distal esophagus dilated up to 20 mm using dilating balloon as well as small hiatal hernia. Pathology confirmed active esophagitis as well as mild reactive gastropathy negative H pylori. He continues Nexium 40 mg which he takes prior to evening meal. He does take Pepcid prn with some improvement. He tries to avoid known food triggers. Symptoms of dysphagia have improved at this time. He follows with Dr. Asher due to history of MN with stent placement 07/2022, currently prescribed Plavix. Denies nausea or vomiting. Gloria Pak NP [address], [address], [place], [address], [facility] & [place] 12/18/2023 09:03:13 03/20/2024 text/html Patient returns to clinic today with complaints of continued uncontrolled GERD symptoms. Previously prescribed Nexium 40 mg po BID however denies improved symptoms with generic dosing. He is currently buying OTC Nexium and taking 2 per day. Symptoms are worse at night. He tries to avoid eating late and tries to monitor portion sizes without improvement. EGD 08/01/[address] Rocha noted mild narrowing in the distal esophagus dilated up to 20 mm using dilating balloon as well as small hiatal hernia. Pathology confirmed active esophagitis as well as mild reactive gastropathy negative H pylori. Gloria Pak NP [address], [address], [place], [address], [facility] & [place] 03/20/2024 09:42:06
--- OUTSIDE RECORDS SUMMARY | 2024-12-08 15:34 | XMS_ITS | Clinical Summary ---
Author Organization Healthcare Address [address] [place] [address] Care Team Providers Care Jtac Name Role Phone Jade Rede MD Primary Care Provider [phone] Social History Tobacco Use Types Packs/Day Years Used Date Smoking Tobacco: Never Assessed Sex and Gender Information Value Date Recorded Sex Assigned at Not on file Legal Sex Male 6:26 PM EDT Gender Identity Not on file Sexual Orientation Not on file Plan of Treatment Health Maintenance Due Date Last Done Comments [facility]-Depression Screening 1940 [facility]-Medicare Annual Wellness (AWV) 1940 [facility]-/Child/Adol SDOH Screenings 1940 [facility]- SDOH Screenings 1958 [facility]-Adult SDOH Screenings 1958 [facility]-DTaP,Tdap,and Td Vaccines (1 - Tdap) 1959 [facility]-Pneumococcal Vaccine: 50+ Years (1 of 1 - PCV) 1990 [facility]-Zoster Vaccines (1 of 2) 1990 [facility]-RSV Vaccine: 60+ Years or (1 - 1-dose 75+ series) 2015 [id number] Vaccine ( season) 2024 02/23/2022, 03/15/2021, 07/27/2020, Additional history exists [facility]-Influenza Vaccine (#1) 02/02/202503/18, 03/02/2020, 02/13/2019, Additional history exists [facility]-Hepatitis A Vaccines Aged Out 02/13/2019, 04/05 No longer eligible based on patient's age to complete this topic HPV Vaccines Aged Out No longer eligi ble based on patient's age to complete this topic [facility]-HIB Vaccines Aged Out No longer e ligible based on patient's age to complete this topic [facility]-IPV Vaccines Aged Out No longer e ligible based on patient's age to complete this topic [facility]-Rotavirus Vaccines Aged Out No lo nger eligible based on patient's age to complete this topic Insurance [employer] MEDICARE Care Teams Jtac Relationship Specialty Start Date End Date Jade Reed MD [address] [place] [id number] PCP - General 10/15/20
[2024-12-08] MEDS: BELLADONNA ALKALOIDS 60 ML ML PO (15:47)
[2024-12-08 16:12] LABS: Hepatitis C Ab Qual. W/ RFX NEGATIVE (Negative)
[2024-12-08 18:23] LABS: Troponin I < 0.01 ng/ml (0.00-0.034)
== END 2024-12-08 18:36 | disposition home or self-care (01) ==
PROVIDERS: Emergency Medicine; Physician Assistant; Emergency Provider Student in an Organized Health Care Education/Training Program; PCP Emergency Medicine
DX: R07.9 Chest pain, unspecified (principal); I10 Essential (primary) hypertension; I25.10 Atherosclerotic heart disease of native coronary artery without angina pectoris; I73.9 Peripheral vascular disease, unspecified; E78.5 Hyperlipidemia, unspecified; Z87.891 Personal history of nicotine dependence; Z11.59 Encounter for screening for other viral diseases; Z11.4 Encounter for screening for human immunodeficiency virus [HIV]
CPT/HCPCS: 71046; 80053; 83735; 84145; 84484; 85025; 85378; 86803; 87389; 93005; 96374; 99285; J1885

== ENCOUNTER 2025-03-16 11:24 | Day surgery (SDC) | payer MEDICARE, SELFPAY ==
--- NOTE | 2025-03-11 12:54 | EXP.HP ---
History of Present Illness *Admission Date: 03/16/25 *History of present illness: Mr. Santana is an 84-year-old gentleman who is here for diagnostic EGD. The patient does have a long history of GERD and is on pantoprazole twice daily and famotidine twice daily. He continues to have breakthrough heartburn and reflux. He also reports excessive bloating, belching and gassiness. He is getting choked regularly and has to regurgitate food. He did go to the ED with chest pain and after cardiac evaluation, this was deemed to be noncardiac chest pain/esophageal chest pain. He does get some relief with belching. He did have an EGD with Dr. Hamzah Rocha last year and had esophageal dilation and a hiatal hernia. His mother had pancreatic cancer. The examination is deemed medically necessary for diagnostic EGD. The patient has been seen, interviewed and examined prior to the procedure by both myself and the anesthesia provider. [facility] Disclaimer: The information contained in this section may have been updated after the patient was seen, as this information can be updated by other users. Medical History Preop examination PVD (peripheral vascular disease) Non-healing open wound of toe Numbness in feet Angina pectoris Coronary artery disease Ischemic cardiomyopathy Non-STEMI (non-ST elevated myocardial infarction) CAD in chilkat artery Benign prostatic hyperplasia Osteoarthritis History of gastroesophageal reflux (GERD) Gallbladder disease Diabetes mellitus, type 2 History of cataract Hyperlipidemia Hypertension History of heart attack Cataract History of left heart catheterization (LHC) Surgical History History of cholecystectomy Family History Other Family history of cancer Social History Smoking Status: Former smoker alcohol intake: never substance use type: denies use current occupational status: retired Travel in the last 8 weeks?: Inside the [place] household members: children housing: house marital status: Other Medical History Have you received the Flu Vaccine for this season: No Have you received the Pneumonia Vaccine: Yes Review of Systems Review of Systems Review of systems (narrative): Negative *Cardiovascular Comments: Negative *Gastrointestinal Comments: Negative *Genitourinary Comments: Negative *Musculoskeletal Comments: Negative *Neurologic Comments: Negative Meds Home Medications and Allergies Home Medications ?Medication ?Instructions ?Recorded ?Confirmed ?Type alfuzosin 10 mg tablet,extended 10 mg PO DAILY bladder problems 07/12/22 02/18/25 History release 24 hr finasteride 5 mg tablet 5 mg PO DAILY bladder problems 07/12/22 02/18/25 History gabapentin 800 mg tablet 800 mg PO Q6HP PRN Pain 07/12/22 02/18/25 History metformin 500 mg tablet 500 mg PO DAILY Diabetes 07/12/22 02/18/25 History aspirin 81 mg tablet,delayed 81 mg PO DAILY #90 tabs 07/20/22 02/18/25 Rx release spironolactone 50 mg tablet 50 mg PO DAILY Diuretic #90 tabs 07/20/22 02/18/25 Rx pantoprazole 40 mg tablet,delayed 40 mg PO DAILY 01/08/25 02/18/25 History release methylcellulose (laxative) 1 tbsp PO DAILY #479 grams 01/12/25 02/18/25 Rx (Citrucel Sugar Free oral powder) polyethylene glycol 3350 17 17 g PO DAILY #510 grams 01/12/25 02/18/25 Rx gram/dose oral powder (Miralax) clopidogrel 75 mg tablet See Rx Instructions .Route 02/19/25 Rx .COMPLEX #90 tabs metoprolol succinate 25 mg See Rx Instructions .Route 02/19/25 Rx tablet,extended release 24 hr .COMPLEX #90 tabs atorvastatin 80 mg tablet 80 mg PO HS #90 tabs 03/16/25 Rx New Prescriptions to Start Prescriptions: Allergies Allergy/AdvReac Type Severity Reaction Status Date / Time dapagliflozin (From [facility]) AdvReac Intermediate INCREASED Verified 03/16/25 11:51 URINE OUTPUT Exam *Routine HEENT Exam Head: Present normocephalic Eye: Present EOMI and PERRL ENT: Present mucous membranes moist *Routine Neck Exam Neck: Present supple *Routine Respiratory Exam Respiratory: Present CTA bilaterally *Routine Cardiovascular Exam Cardiovascular: Present RRR *Routine Abdominal Exam Abdominal: Present soft and normoactive bowel sounds; Absent tenderness *Routine Rectal Exam Rectal:: deferred *Routine Genitalia Exam Genitalia:: deferred *Routine Extremities Exam Extremities: Absent cyanosis, clubbing or edema *Routine Skin Exam Skin: Present warm; Absent rash *Routine Neurological Exam Neurological: Present alert and oriented X3 Assessment and Plan *Assessment and plan (1) Heartburn: Status: Acute Category: Medical Code(s): R12 - Heartburn (2) Acid reflux: Status: Acute Category: Medical Code(s): K21.9 - Gastro-esophageal reflux disease without esophagitis (3) Regurgitation of food: Status: Acute Category: Medical Code(s): R11.10 - Vomiting, unspecified (4) Bloating: Status: Acute Category: Medical Code(s): R14.0 - Abdominal distension (gaseous) (5) Choking: Status: Acute Category: Medical Code(s): T17.308A - Unspecified foreign body in larynx causing other injury, initial encounter (6) Belching: Status: Acute Category: Medical Code(s): R14.2 - Eructation (7) Atypical chest pain: Status: Acute Category: Medical Code(s): R07.89 - Other chest pain Plan A/P: 1. Intractable heartburn and reflux with bloating, belching, choking and atypical/noncardiac chest pain is the preprocedural diagnosis. The patient will be anesthetized/sedated using MAC sedation. The patient has been seen and examined. Cardiac and lung assessment prior to the examination is stable. Proceed with planned diagnostic EGD.
--- NOTE | 2025-03-16 07:09 | P.PCN_ITS ---
[facility] Procedure Note Date: 03/16/25 Time: 12:37 Procedure Note:: Upper Endoscopy Procedure Report: Esophagogastroduodenoscopy with cold biopsies and TTS balloon dilation Endoscopost: John Mckeon II, MD Referring Physician: Erin Kirby MD Date of Procedure: March 16, 2025 Equipment: Olympus GIF-1100 standard upper endoscope Sedation: MAC sedation Indications: Mr. Santana is an 84-year-old gentleman who is here for diagnostic EGD. The patient does have a long history of GERD and is on pantoprazole twice daily and famotidine twice daily. He continues to have breakthrough heartburn and reflux. He also reports excessive bloating, belching and gassiness. He is getting choked regularly and has to regurgitate food. He did go to the ED with chest pain and after cardiac evaluation, this was deemed to be noncardiac chest pain/esophageal chest pain. He does get some relief with belching. The patient does get some choking on liquids. He did have an EGD with Dr. Hamzah Rocha last year and had esophageal dilation and a hiatal hernia. His mother had pancreatic cancer. The examination is deemed medically necessary for diagnostic EGD. Procedure: Prior to the procedure, a history and physical exam was performed, and patient's medications and allergies were reviewed. The risks, benefits and alternatives of the sedation and procedure were discussed with the patient. All questions were answered and informed consent was obtained. The patient was brought to the procedure room. Patient identification and proposed procedure were verified by the physician and the nurse. The patient was placed in a left lateral decubitus position and the scope was passed under direct vision. Throughout the procedure, the patient's blood pressure, pulse, and oxygen saturations were monitored continuously. The upper GI endoscopy was accomplished without difficulty. The patient tolerated the procedure well. Findings: The scope was passed directly into the upper esophagus and advanced to the third portion of the duodenum. The post bulbar duodenum, ampulla and duodenal bulb were normal with normal mucosa and conniventes. 2 cold biopsies were taken from the second portion of the duodenum for the disaccharidase assay. The scope was withdrawn through a normal duodenal bulb and pylorus into the stomach. There was bile reflux with mild to moderate linear reactive gastropathy of the antrum and body of the stomach. The fundus of the stomach was normal. Upon retroflexion there was no hiatal hernia. Cold biopsies were taken from the antrum and incisura. The scope was then withdrawn into the esophagus. There was no evidence of reflux esophagitis or Resendiz's. There were tertiary contractions and evidence of mild esophageal dysmotility. The entire esophagus was dilated to 60 [place]/20 mm with a TTS hydrostatic balloon. There was no resistance. The remainder of the esophageal mucosa was normal. Impression: 1. Nonerosive GERD with mild esophageal dysmotility 2. Bile reflux with mild to moderate linear reactive gastropathy Plan: I will follow-up the biopsies and disaccharidase assay. The patient does have gas driven bile reflux and dyspepsia. Most of his symptoms of reflux and dyspepsia are related to and driven by lower intestinal gas pressure gradients/high gas pressure buildup resulting in backflow of bile and peptic fluid from the duodenum into the stomach (duodenal reflux). This gas production (carbon dioxide, hydrogen, methane, etc.) from the lower intestinal tract is the byproduct of colonic bacterial fermentation. This colonic fermentation occurs when there is more carbohydrate (dietary starches, sugars and high residue plant fiber) substrate that does not get digested (in the middle or small intestine) or occurs when there is colonic fecal buildup and colonic bacterial overgrowth. This indeed leads to bloating and the gas pressure buildup with gas pressure gradients that do drive backflow and dyspepsia.
[2025-03-16 11:41] VITALS: BP 135/69; PULSE 62; RESP 16; TEMP 36.1; O2SAT 97; BMI 34.4
[2025-03-16 11:53] LABS: POC Glucose,Bedside 99 gm/dL (70-110)
[2025-03-16] MEDS: LACTATED RINGERS 1000ML 1,000 ML 50 ML IV (11:57)
--- NOTE | 2025-03-16 12:21 | EXP.ANES.CKL ---
[facility] Disclaimer: The information contained in this section may have been updated after the patient was seen, as this information can be updated by other users. Medical History Preop examination PVD (peripheral vascular disease) Non-healing open wound of toe Numbness in feet Angina pectoris Coronary artery disease Ischemic cardiomyopathy Non-STEMI (non-ST elevated myocardial infarction) CAD in [place] artery Benign prostatic hyperplasia Osteoarthritis History of gastroesophageal reflux (GERD) Gallbladder disease Diabetes mellitus, type 2 History of cataract Hyperlipidemia Hypertension History of heart attack Cataract History of left heart catheterization (LHC) Surgical History History of cholecystectomy Family History Other Family history of cancer Social History Smoking Status: Former smoker alcohol intake: never substance use type: denies use current occupational status: retired Travel in the last 8 weeks?: Inside the [place] household members: children housing: house marital status: [facility] Anesthesia Checklist Patient Identification Patient Identification: Arm Band Structural Data Admitted From: Home Planned Operative Procedure/s: EGD Consent for Planned Operative Procedure(s) Verified: Yes Verified Documents: Surgical Consent and History and Physical NPO Status Verified Time NPO: 00:00 Additional verifications Anesthesia Reactions: No Airway Assessment Mallampati Score:: Class II C-Spine Mobility Assessed: Yes TMJ Mobility Assessed: Yes Dentition: Good Dentition Neurological Assessment Level of Consciousness: Awake, Alert and Appropriate Anesthesia Plan Anesthesia Risk discussed: Yes Anesthesia Plan: Verified ASA Class: III Anesthesia Type: MAC
[2025-03-16 12:37] VITALS: BP 131/81; PULSE 66; RESP 18; TEMP 36.3; O2SAT 90
[2025-03-16 12:47] VITALS: BP 147/63; PULSE 61; RESP 18; O2SAT 92
[2025-03-16 12:57] VITALS: BP 132/81; PULSE 64; RESP 18; O2SAT 95
[2025-03-16 13:07] VITALS: BP 132/80; PULSE 60; RESP 18; O2SAT 94
[2025-03-19 13:12] LABS: Interpretation Notes (.); Lactase 4.13 (>/= 14.0); Maltase 86.07 (>/= 110.0); Palatinase 5.65 (>/= 8.5); Reference Notes (.); Sucrase 20.43 (>/= 25.0)
== END 2025-03-16 13:20 | disposition home or self-care (01) ==
PROVIDERS: Visit Provider Internal Medicine Gastroenterology
PROC: 0DJ08ZZ Inspection of Upper Intestinal Tract, Via Natural or Artificial Opening Endoscopic (ICD-10-PCS; CPT 43239; principal; 2025-03-16 13:00)
DX: K21.9 Gastro-esophageal reflux disease without esophagitis (principal); K22.4 Dyskinesia of esophagus; K31.89 Other diseases of stomach and duodenum; K29.50 Unspecified chronic gastritis without bleeding; I10 Essential (primary) hypertension; E78.5 Hyperlipidemia, unspecified; I25.2 Old myocardial infarction; E11.51 Type 2 diabetes mellitus with diabetic peripheral angiopathy without gangrene; I25.5 Ischemic cardiomyopathy; I25.10 Atherosclerotic heart disease of native coronary artery without angina pectoris; N40.0 Benign prostatic hyperplasia without lower urinary tract symptoms; Z95.5 Presence of coronary angioplasty implant and graft; Z87.891 Personal history of nicotine dependence; Z79.899 Other long term (current) drug therapy; Z79.84 Long term (current) use of oral hypoglycemic drugs; Z79.02 Long term (current) use of antithrombotics/antiplatelets; Z79.82 Long term (current) use of aspirin; Z88.8 Allergy status to other drugs, medicaments and biological substances
CPT/HCPCS: 43239; 43249; 82657; 82962; C1726; J2003; J2704; J7120

== ENCOUNTER 2025-04-01 11:30 | Outpatient (CLI) | payer MEDICARE, SELFPAY ==
--- OUTSIDE RECORDS SUMMARY | 2025-04-01 11:33 | XMS_ITS | Clinical Summary ---
[facility] Address [address] [place] [address] Care Team Providers Care Component Assembler Supervisor Name Role Phone Provider, No Known Primary Care Provider Unavail able Social History Tobacco Use Types Packs/Day Years Used Date Smoking Tobacco: Never Assessed Abuse Screen Answer Date Recorded Unsafe at Home or Work/School Not on file Feels Threatened by Someone? Not on file 03/2023 Does Anyone Keep You from Co ntacting Others or Doint Things Outside the Home? Not on file 03/13/2023 Physical Sign of Abuse Present Not on file 1 Housing Stability Answer Date Recorded Current Living Arrangements Not on file 03/04 Potentially Unsafe Housing Conditions Not on tunde e 03/13/2023 Family and Community Support Answer Anibal e Recorded Help with Day-to-Day Activities Not on file 03/13/2023 Lonely or Isolated Not on file 03/13/2023 Employment Answer Date Recorded Do you want help finding or keeping work or a sandra b? Not on file 03/13/2023 Disabilities Answer Date Recorded Concentrating, Remembering, or Making Decisions Difficulty Not on file 03/13/2023 Doing Errands Independently Difficulty Not on fi le 03/13/2023 Education Answer Date Recorded Help with school or training? Not on file Preferred Language Not on file 03/13/2023 Sex and Gender Information Value Date Recorded Sex Assigned at Not on file Legal Sex Male 1:41 PM EDT Gender Identity Not on file Sexual Orientation Not on file Last Filed Vital Signs Vital Sign Reading Time Taken Comments Blood Pressure 115/66 10/29/2013 4:00 PM EDT Pulse 78 10/29/2013 4:00 PM EDT Temperature - - Respiratory Rate - - Oxygen Saturation - - Inhaled Oxygen Concentration - - Weight 109 kg (239 lb 15.9 oz) 10/29/2013 4:00 P M EDT Height 177.8 cm (5' 10 ) 10/29/2013 4:00 PM EDT Body Mass Index 34.44 10/29/2013 4:00 PM EDT Plan of Treatment Health Maintenance Due Date Last Done Comments TDAP/TD VACCINES (1 - Tdap) 1959 Pneumococcal Vaccine 50+ (1 of 1 - PCV) 1990 ZOSTER VACCINE (1 of 2) 1990 RSV Vaccine - Adults (1 - 1- dose 75+ series) 2015 ANNUAL PHYSICAL 01/30/2020 INFLUENZA VACCINE 01/02/2025 02/13/2019, 04/15/2018 COVID-19 Vaccine ( - season) 2025 Insurance [employer] Care Teams Component Assembler Supervisor Relationship Specialty Start Date End Date Provider, No Known [facility] [place] [address] PCP - General 01/30/20
--- OUTSIDE RECORDS SUMMARY | 2025-04-01 11:33 | XMS_ITS | Clinical Summary ---
Author Organization Healthcare Address [address] [place] [address] Care Team Providers Care Speech Therapy Director Name Role Phone Jade Reed MD Primary Care Provider [phone] Social History Tobacco Use Types Packs/Day Years [...] or (1 - 1-dose 75+ series) 2015 [id number] Vaccine ( - season) 2025 02/23/2022, 03/15/2021, 07/27/2020, Additional history exists [facility]-Influenza [...] this topic Insurance [employer] MEDICARE Care Teams Speech Therapy Director Relationship Specialty Start Date End Date Jade Reed MD [address] [place] [id number] PCP - General 10/15/20
[2025-04-01 12:11] LABS: Hematocrit 47.5 % (42.0-52.0); Hemoglobin 15.1 g/dL (14.1-18.0); Immature Granulocytes % 0.6 %; Mean Corpuscular HGB Conc 31.8 g/dL (31.8-35.4); Mean Corpuscular Hemoglobin 29.8 pg (27.0-31.2); Mean Corpuscular Volume 93.9 fl (80-94); Nucleated Red Blood Cells % 0 %; Platelet Count 178 K/mm3 (142-424); Red Blood Count 5.06 M/mm3 (4.60-6.20); Red Cell Distribution Width-SD 45.1 fL; White Blood Count 7.1 K/mm3 (4.8-10.8)
[2025-04-01 12:38] LABS: Alanine Aminotransferase 13 U/L (12-78); Albumin Level 3.4 g/dl (3.5-5.0); Alkaline Phosphatase 76 U/L (38-126); Anion Gap 8.7 mEq/L (5-15); Aspartate Amino Transferase 23 U/L (17-59); Bilirubin,Direct 0.2 mg/dl (0.0-0.4); Bilirubin,Indirect 0.6 mg/dL (0.0-0.9); Bilirubin,Total 0.8 mg/dl (0.2-1.3); Bilirubin,Unconjugated 0.6 mg/dL (0.0-1.1); Blood Urea Nitrogen 16 mg/dl (9-20); Calcium 9.3 mg/dl (8.4-10.2); Carbon Dioxide 33 mmol/L (22.0-30.0); Chloride 99 mmol/L (98-107); Cholesterol 111 mg/dl (140-200); Creatinine,Serum 1.20 mg/dl (0.66-1.25); Estimated Glomerular Filt Rate 58 ml/min (>60); GFR (African American) 70 ML/MIN (>60); Glucose 131 mg/dl (74-100); HDL Cholesterol 38 mg/dl (40-60); Magnesium 1.8 mg/dl (1.6-2.3); Potassium 4.7 mmoL/L (3.5-5.1); Sodium 136 mmol/L (136-145); Total Protein,Serum 7.1 g/dl (6.3-8.2); Triglycerides 182 mg/dl (30-150)
[2025-04-01 12:55] LABS: Free T4 (Free Thyroxine) 0.94 ng/dl (0.78-2.19)
[2025-04-01 13:09] LABS: Thyroid Stimulating Hormone 2.37 uIU/mL (0.465-4.68)
== END 2025-04-01 23:59 | disposition home or self-care (01) ==
LOC: LAB 11:31
PROVIDERS: PCP Emergency Medicine; Visit Provider Nurse Practitioner
DX: I25.10 Atherosclerotic heart disease of native coronary artery without angina pectoris (principal); E78.5 Hyperlipidemia, unspecified; I10 Essential (primary) hypertension
CPT/HCPCS: 36415; 80048; 80061; 80076; 83735; 84439; 84443; 85025